=== PATIENT | female | born 1985 | race Two or more races ===

== ENCOUNTER 2021-09-17 00:32 | Inpatient (IN) | payer OTHER ==
[~2021-09-17] VITALS: Ht 160 cm; Wt 85.7 kg
--- NOTE | 2021-09-17 00:40 | NUR ---
LEONIDESRA 86 C/O DESAT AT HOME IN THE 50s, COVID SINCE 09/07. PER EMS 80s SAT ON 15LPM WITH INCREASED WORK OF BREATHING. PT PLACED ON NRB 15LPM WITH IMPROVEMENT TO 97% AND IMPROVED WORK OF BREATHING. PT AWAKE AND ALERT CHANGED INTO A GOWN AND PLACED ON MONITOR.
--- NOTE | 2021-09-17 00:44 | NUR ---
shwtea 20g initiated, blood sent to lab
[2021-09-17] MEDS ORDERED: methylPREDNISolone SOD SUCC 125 MG/2ML VIAL ONE (00:45)
[2021-09-17] MEDS ORDERED: methylPREDNISolone SOD SUCC 125 MG/2ML VIAL IV ONE (01:00)
[2021-09-17] MEDS ORDERED: IV NS 0.9% 1,000 ML IV ONE (01:00)
[2021-09-17 01:34] LABS: BASOPHILS % (AUTO) 0.3 % (0.0-2.0); EOSINOPHILS % (AUTO) 0.1 % (0.0-6.0); HEMATOCRIT 38 % (33-45); HEMOGLOBIN 12.8 g/dL (11.5-14.8); LYMPHOCYTES % (AUTO) 11.9 % (20.0-44.0); MEAN CORPUSCULAR HGB CONC 34 g/dl (31.0-36.0); MEAN CORPUSCULAR VOLUME 91 fL (82-100); MONOCYTES % (AUTO) 3.6 % (2.0-12.0); NEUTROPHILS % (AUTO) 84.1 % (43.0-81.0); PLATELET COUNT (AUTO) 453 K/uL (150-450); RED BLOOD CELL COUNT(AUTO) 4.21 MIL/uL (4.0-5.2); WHITE BLOOD COUNT (AUTO) 5.4 K/uL (4.3-11.0)
[2021-09-17 01:35] LABS: LYMPHOCYTES # (AUTO) 0.6 K/uL (0.8-4.8); MONOCYTES # (AUTO) 0.2 K/uL (0.1-1.30); NEUTROPHILS # (AUTO) 4.6 K/uL (1.8-8.9)
[2021-09-17 01:48] LABS: CALCIUM, SERUM 8.1 mg/dL (8.5-10.1); CARBON DIOXIDE 21 mmol/L (21-32); CHLORIDE 103 mmol/L (98-107); CREATININE 0.7 mg/dL (0.6-1.3); GLUCOSE 95 mg/dL (74-106); POTASSIUM 3.2 mmol/L (3.5-5.1); SODIUM SERUM 138 mmol/L (136-145); UREA NITROGEN, BLOOD 8 mg/dL (7-18)
[2021-09-17 01:51] LABS: CREATINE KINASE, TOTAL 54 U/L (26-192)
[2021-09-17 01:59] LABS: D-DIMER 4.11 mg/L(FEU (0.17-0.50)
[2021-09-17 02:02] LABS: ALANINE AMINOTRANSFERASE 35 U/L (12-78); ALBUMIN 2.4 g/dL (3.4-5.0); ALKALINE PHOSPHATASE 146 U/L (46-116); ASPARTATE AMINOTRANSFERASE 65 U/L (15-37); BILIRUBIN,TOTAL 0.3 mg/dL (0.2-1.0); TOTAL PROTEIN, SERUM 6.9 g/dL (6.4-8.2)
[2021-09-17 02:08] LABS: ABG BASE EXCESS -4.3 mmol/L; ABG OXYGEN SATURATION 96.2 % (92.0-98.5); ABG PCO2 28.9 mmHg (35.0-45.0); ABG PH 7.431 (7.350-7.450); ABG PO2 89.3 mmHg (75.0-100.0); AaDO2 594.8 mmHg; COHb 0.3 % (0.5-1.5); MetHb 0.2 % (0.0-1.5); O2Hb 95.7 % (94.0-97.0); SITE, ABG Right Radial; VENT MODE, BG 15 LNRB
[2021-09-17 02:12] LABS: C-REACTIVE PROTEIN 22.4 mg/dL (0.0-0.9)
--- NOTE | 2021-09-17 04:46 | NUR ---
SPOKE WITH MARJAN, DEBT AND BUDGET COUNSELOR FOR CLINICAL INFORMATION. PT IS AUITHORIZED TO STAY. VERBAL AUTH GIVEN.
--- NOTE | 2021-09-17 05:18 | NUR ---
EPIC PANEL PAGED
[2021-09-17] MEDS ORDERED: ENOXAPARIN SODIUM 100 MG/ML DISP.SYRIN SQ ONE ×2 (06:00→06:42)
[2021-09-17] MEDS ORDERED: OXYC1TAB8 PO (06:57)
[2021-09-17] MEDS ORDERED: POTASSIUM CHLORIDE 20 MEQ TAB.PRT.SR PO ONE ×2 (07:30→09:42)
[2021-09-17] MEDS ORDERED: TEMAZEPAM 15 MG CAPSULE PO PRN (07:30)
[2021-09-17 07:59] LABS: LYMPHOCYTES % (MANUAL) 15 % (16-48); MONOCYTES % (MANUAL) 5 % (0-11.0); NEUTROPHILS % (MANUAL) 80 (42-76)
--- NOTE | 2021-09-17 08:25 | NUR ---
MS BED 113
[2021-09-17] MEDS: DEXAMETHASONE SOD PHOSPHATE 4 MG/ML VIAL IV SCH (09:30)
[2021-09-17] MEDS ORDERED: DEXAMETHASONE SOD PHOSPHATE 4 MG/ML VIAL ONE (09:42)
--- NOTE | 2021-09-17 10:15 | NUR ---
REPORT GIVEN TO GILBERTO KIMBALL FOR LAURA.
--- NOTE | 2021-09-17 10:23 | NUR ---
JUAN ANTONIO RENO.
--- NOTE | 2021-09-17 12:00 | NUR ---
TRAIN CONDUCTOR ADMITTING NOTES ADMITTED THIS 36 Y/O FEMALE PT TO UNIT VIA [facility] @1140 ACCOMPANIED BY ER STAFF. PATIENT IS ALERT AND ORIENTED X4, ABLE TO MAKE NEEDS KNOWN. ON HIGH FLOW OXYGEN AT 15LPM VIA NON-REBREATHER MASK. PT'S SATURATION @90%. C/O SOB WITH LABORED BREATHING. PT PLACED ON LITHOGRAPHIC PHOTOGRAPHER APPRENTICE WITH CURRENT READING OF NSR, HR @ 100. DENIES ANY CHEST PAIN. ABDOMEN SOFT AND NON-TENDER, WITH DIMINISHED LUNG SOUNDS BILATERALLY. IV ACCESS ON RAC #18G INTACT AND PATENT, SL. ISOLATION PRECAUTION OBSERVED. SAFETY MEASURE INITIATED. BED LOCKED AND IN LOWEST POSITION, SR UP X2, CALL LIGHT AND TABLE PLACED WITHIN EASY REACH. WILL CONTINUE TO MONITOR.
--- NOTE | 2021-09-17 13:01 | NUR ---
RN NOTES PT NOTED WITH SPO2 OF 86% ON 15 LPM O2 VIA NON REBREATHER MASK. CHARGE NURSE NOTIFIED MD AND CALLED RT. RT CAME, PT WAS PUT ON HIGH FLOW O2 AT 40, NOW SATTING @ 96%. WILL CONTINUE TO MONITOR PATIENT.
[2021-09-17] MEDS ORDERED: REMDESIVIR (CHARGED) 200 MG, *LOADING DOSE 1 EA in IV NS 0.9% 210 ML IV ONE (15:00)
[2021-09-17] MEDS: APIXABAN 5 MG TABLET PO SCH (16:27)
--- NOTE | 2021-09-17 18:42 | NUR ---
ORDER DISPATCHER CHIEF CLOSING NOTES PT RESTING IN BED, A/O X4. REMAINS ON HIGH FLOW O2, FLOW RATE OF 40 VIA N/C, SATURATING AT 95%. NOTED WITH NON PRODUCTIVE COUGH. STILL WITH C/O SOB. REMDESIVIR GIVEN ORDERED, NO A/R NOTED. IV ACCESS ON RAC #18G INTACT AND PATENT, SL. ON MOP WORKER WITH CURRENT READING OF NSR, HR @98. ISOLATION PRECAUTIONS OBSERVED. SAFETY PRECAUTIONS IN PLACE. BED LOCKED AND IN LOWEST POSITION, SR UP X2, CALL LIGHT AND TABLE WITHIN EASY REACH. WILL ENDORSE TO NEXT SHIFT FOR CONTINUITY OF CARE.
--- NOTE | 2021-09-17 19:00 | NUR ---
telephone exchange operator notes Received pts in bed on hi flow 40% fio2 100% , noted desating to 80% pts gasping for air non rebreather mask 15 liters applied stat blood gas ordered , rn day shift nurse informed dr gomes . rt at bedside abg done , awaiting for result. place pts on right side position sating 94%
[2021-09-17 19:58] LABS: ABG BASE EXCESS -4.7 mmol/L; ABG OXYGEN SATURATION 89.9 % (92.0-98.5); ABG PCO2 23.1 mmHg (35.0-45.0); ABG PH 7.484 (7.350-7.450); ABG PO2 58.9 mmHg (75.0-100.0); COHb 0.3 % (0.5-1.5); MetHb 0.1 % (0.0-1.5); O2Hb 89.5 % (94.0-97.0); SITE, ABG Left Brachial; VENT MODE, BG HFNC 40L 100% +NRB 15L
[2021-09-17 20:00] VITALS: BP 123/66
--- NOTE | 2021-09-17 20:00 | NUR ---
telecommunications cable jointer notes Received pts in bed awake a/o x 4 able to make needs known , pts on hi flow 40% fio2 100% , 15 liters non rebreather mask,tele monitor ST- 103 bpm still with slight sob at this time . pts on right side position sating 94%v/s stable afebrile .all needs attended too call light within reach , kept pts comfortable.will continue to monitor.
--- NOTE | 2021-09-17 20:30 | NUR ---
television specialist notes Received a call from dr eliseo rodríguez result relayed with order to tranfer pts in icu for further monitoring .
--- NOTE | 2021-09-17 22:55 | NUR ---
television actor notes Pts transfer to icu room 254 via acls monitor , on 15 liters non rebreather mask ,and hi flow 40% fio2 100% sating 96% full report given to jim for continuity of care , pts is a/o x4 v/s stable afebrile at this time .
[2021-09-17 23:00] VITALS: BP 120/65
[2021-09-17 23:59] VITALS: BP 118/62
[2021-09-18] VITALS (22 sets, daily range): BP systolic 110–137; BP diastolic 33–89
--- NOTE | 2021-09-18 00:05 | NUR ---
manager nicu. transfer the pt from marita for abnormal abg result.pt is oxygen high flow and non rebreather, sat 93%, will continue to monitor vitals.
--- NOTE | 2021-09-18 04:47 | NUR ---
rn picu. am care. oral care, bed bath given. remaining same oxygen tolerated well. sat 95%. rn cardiac showing nsr. iv rt hand 20g. saline lock. hob elevated, pt on oxygen high flow and top nonrebreather. hob elevated. will continue to monitor vitals.
[2021-09-18 06:45] LABS: BASOPHILS % (AUTO) 0.1 % (0.0-2.0); HEMATOCRIT 34 % (33-45); HEMOGLOBIN 11.5 g/dL (11.5-14.8); LYMPHOCYTES # (AUTO) 0.8 K/uL (0.8-4.8); LYMPHOCYTES % (AUTO) 10.2 % (20.0-44.0); MEAN CORPUSCULAR HGB CONC 34 g/dl (31.0-36.0); MEAN CORPUSCULAR VOLUME 89 fL (82-100); MONOCYTES # (AUTO) 0.4 K/uL (0.1-1.30); MONOCYTES % (AUTO) 5.6 % (2.0-12.0); NEUTROPHILS # (AUTO) 6.6 K/uL (1.8-8.9); NEUTROPHILS % (AUTO) 84.1 % (43.0-81.0); PLATELET COUNT (AUTO) 536 K/uL (150-450); RED BLOOD CELL COUNT(AUTO) 3.83 MIL/uL (4.0-5.2); WHITE BLOOD COUNT (AUTO) 7.8 K/uL (4.3-11.0)
--- NOTE | 2021-09-18 07:42 | NUR ---
REFINERY OPERATOR POLYMERIZATION PLANT PATIENT RECEIVED IN BED, SLEEPING. PATIENT ON HFNC AT 40L 100% FIO2 AND NRB AT 15L, SATURATING AT 98%. RIGHT AC 18G IN PLACE, PATENT WITH NO SIGNS OF INFILTRATION. NO SIGNS OF DISTRESS NOTED AT THIS TIME. BED LOCKED AND IN LOWEST POSITION, CALL LIGHT WITHIN REACH, 2 SIDE RAILS UP. WILL CONTINUE TO MONITOR.
[2021-09-18 07:57] LABS: CALCIUM, SERUM 8.7 mg/dL (8.5-10.1); CREATININE 0.5 mg/dL (0.6-1.3); POTASSIUM 3.8 mmol/L (3.5-5.1)
[2021-09-18 07:59] LABS: ALBUMIN 2.2 g/dL (3.4-5.0); BILIRUBIN,DIRECT 0.1 mg/dL (0.0-0.2); BILIRUBIN,TOTAL 0.3 mg/dL (0.2-1.0); TOTAL PROTEIN, SERUM 6.4 g/dL (6.4-8.2)
[2021-09-18] MEDS: DEXAMETHASONE SOD PHOSPHATE 4 MG/ML VIAL IV SCH (08:38)
[2021-09-18] MEDS: APIXABAN 5 MG TABLET PO SCH ×2 (08:43→16:05)
[2021-09-18] MEDS ORDERED: TOCILIZUMAB 400 MG in IV NS 0.9% 80 ML IV ONE (11:30)
[2021-09-18] MEDS: ALBUTEROL SULFATE 8 GM HFA.AER.AD IH PRN ×2 (12:14→17:17)
[2021-09-18] MEDS ORDERED: TOCILIZUMAB 800 MG in IV NS 0.9% 60 ML IV ONE (12:30)
[2021-09-18] MEDS: REMDESIVIR (CHARGED) 100 MG in IV NS 0.9% 100 ML IV SCH (15:00)
--- NOTE | 2021-09-18 19:30 | NUR ---
RN NOTE PT RECEIVED IN BED. PT IS ON HIGH FLOW O2 AT 40L, FIO2 AT 100%, AND NRB MASK AT 15L. PT TOLERATING CURRENT SETTINGS WELL. PT IS ALERT AND ORIENTED X4. ON TRACTOR TRAILER TRUCK DRIVER SHOWING NSR. SKIN INTACT. IV ACCESS NOTED ON RIGHT AC #18. LINE FLUSHED, PATENT, AND INTACT WITH NO SIGNS OF INFILTRATION. ALL SAFETY MEASURES IMPLEMENTED. CALL LIGHT WITHIN REACH. BED ALARM ON. BED LOCKED AND IN LOWEST POSITION. WILL CONTINUE TO MONITOR AND ASSESS FOR ANY CHANGES DURING SHIFT.
[2021-09-19] VITALS (26 sets, daily range): BP systolic 97–140; BP diastolic 45–85
[2021-09-19 05:09] LABS: BASOPHILS % (AUTO) 0.1 % (0.0-2.0); HEMATOCRIT 34 % (33-45); HEMOGLOBIN 11.3 g/dL (11.5-14.8); LYMPHOCYTES # (AUTO) 0.8 K/uL (0.8-4.8); LYMPHOCYTES % (AUTO) 11.7 % (20.0-44.0); MEAN CORPUSCULAR HGB CONC 34 g/dl (31.0-36.0); MEAN CORPUSCULAR VOLUME 90 fL (82-100); MONOCYTES # (AUTO) 0.6 K/uL (0.1-1.30); MONOCYTES % (AUTO) 8.5 % (2.0-12.0); NEUTROPHILS # (AUTO) 5.4 K/uL (1.8-8.9); NEUTROPHILS % (AUTO) 79.7 % (43.0-81.0); PLATELET COUNT (AUTO) 453 K/uL (150-450); RED BLOOD CELL COUNT(AUTO) 3.76 MIL/uL (4.0-5.2); WHITE BLOOD COUNT (AUTO) 6.8 K/uL (4.3-11.0)
[2021-09-19 05:40] LABS: ALBUMIN 2.2 g/dL (3.4-5.0); BILIRUBIN,DIRECT 0.1 mg/dL (0.0-0.2); BILIRUBIN,TOTAL 0.2 mg/dL (0.2-1.0); CREATININE 0.6 mg/dL (0.6-1.3); POTASSIUM 3.5 mmol/L (3.5-5.1)
--- NOTE | 2021-09-19 06:39 | NUR ---
RN NOTE NO CHANGES IN PT CONDITION DURING SHIFT. PT IS ON HIGH FLOW O2 AT 40L, FIO2 AT 100%, AND NRB MASK AT 15L. PT TOLERATING CURRENT SETTINGS WELL WITH CURRENT OXYGEN SATURATION AT 97%. PT IS ALERT AND ORIENTED X4. ON LION TRAINER SHOWING NSR-SB. IV ACCESS NOTED ON RIGHT AC #18. LINE FLUSHED, PATENT, AND INTACT WITH NO SIGNS OF INFILTRATION. ALL DUE MEDS GIVEN ORDERED. PT KEPT CLEAN AND COMFORTABLE. ALL SAFETY MEASURES IMPLEMENTED. CALL LIGHT WITHIN REACH. BED ALARM ON. BED LOCKED AND IN LOWEST POSITION. WILL ENDORSE TO MORNING SHIFT RN FOR LAURA.
--- NOTE | 2021-09-19 07:23 | NUR ---
BUS REPAIR SUPERVISOR NOTE PATIENT RECEIVED IN BED, SLEEPING. PATIENT ON HIGH FLOW NC 40L 100% FIO2 AND NRB 15L AT THIS TIME SATURATING 96%. RIGHT AC 18G IV IN PLACE, PATENT WITH NO SIGNS OF INFILTRATION. NO SIGNS OF DISTRESS NOTED AT THIS TIME. BED LOCKED AND IN LOWEST POSITION, CALL LIGHT WITHIN REACH, 2 SIDE RAILS UP. WILL CONTINUE TO MONITOR.
[2021-09-19] MEDS: DEXAMETHASONE SOD PHOSPHATE 4 MG/ML VIAL IV SCH (08:08)
[2021-09-19] MEDS: APIXABAN 5 MG TABLET PO SCH ×2 (08:09→17:00)
[2021-09-19] MEDS: ONDANSETRON HCL/PF 4 MG/2 ML VIAL IVP PRN (08:14)
[2021-09-19 10:34] LABS: BAND % (MANUAL) 4 % (0.0-5.0); LYMPHOCYTES % (MANUAL) 11 % (16-48); METAMYELOCYTES % 1 % (0-0); MONOCYTES % (MANUAL) 4 % (0-11.0); MYELOCYTES % 1 % (0-0); NEUTROPHILS % (MANUAL) 79 (42-76)
[2021-09-19] MEDS: REMDESIVIR (CHARGED) 100 MG in IV NS 0.9% 100 ML IV SCH (15:47)
--- NOTE | 2021-09-19 19:08 | NUR ---
PUBLIC RELATIONS ANALYST PATIENT REMAINS IN BED, AWAKE, A&OX4. PATIENT ON HIGH FLOW NC 40L 100% FIO2 AND NRB 15L AT THIS TIME SATURATING 96%. RIGHT AC 18G IV IN PLACE, PATENT WITH NO SIGNS OF INFILTRATION. NO SIGNS OF DISTRESS NOTED AT THIS TIME. BED LOCKED AND IN LOWEST POSITION, CALL LIGHT WITHIN REACH, 2 SIDE RAILS UP. ALL NEED ATTENDED DURING SHIFT. WILL ENDORSE TO CHANGE BOOTH ATTENDANT NURSE.
--- NOTE | 2021-09-19 19:30 | NUR ---
RN NOTE PT RECEIVED IN BED. PT IS ON HIGH FLOW O2 AT 40L, FIO2 AT 100%, AND NRB MASK AT 15L. PT TOLERATING CURRENT SETTINGS WELL. PT IS ALERT AND ORIENTED X4. ON PUBLIC RELATIONS SENIOR ASSOCIATE SHOWING NSR. IV ACCESS NOTED ON RIGHT AC #18. LINE FLUSHED, PATENT, AND INTACT WITH NO SIGNS OF INFILTRATION. ALL SAFETY MEASURES IMPLEMENTED. CALL LIGHT WITHIN REACH. BED ALARM ON. BED LOCKED AND IN LOWEST POSITION. WILL CONTINUE TO MONITOR AND ASSESS FOR ANY CHANGES DURING SHIFT.
--- NOTE | 2021-09-19 20:30 | NUR ---
RN NOTE PT HIGH FLOW SETTINGS NOW AT 30L, 100% FIO2. PT TOLERATING WELL WITH OXYGEN SATURATION >95%. WILL CONTINUE TO MONITOR AND ASSESS FOR ANY CHANGES.
[2021-09-20] VITALS (24 sets, daily range): BP systolic 95–131; BP diastolic 41–87
[2021-09-20] MEDS: ONDANSETRON HCL/PF 4 MG/2 ML VIAL IVP PRN (02:32)
[2021-09-20 05:02] LABS: ALBUMIN 2.3 g/dL (3.4-5.0); BILIRUBIN,DIRECT 0.1 mg/dL (0.0-0.2); BILIRUBIN,TOTAL 0.2 mg/dL (0.2-1.0); CALCIUM, SERUM 7.7 mg/dL (8.5-10.1); CREATININE 0.6 mg/dL (0.6-1.3); POTASSIUM 3.3 mmol/L (3.5-5.1); TOTAL PROTEIN, SERUM 5.7 g/dL (6.4-8.2)
--- NOTE | 2021-09-20 06:36 | NUR ---
RN NOTE NO CHANGES IN PT CONDITION DURING SHIFT. PT IS NOW ON HIGH FLOW O2 AT 30L, FIO2 AT 100%, AND NRB MASK AT 15L. PT TOLERATING CURRENT SETTINGS WELL WITH CURRENT OXYGEN SATURATION >95%. PT IS ALERT AND ORIENTED X4. ON PRODUCTION DEPARTMENT SUPERVISOR SHOWING NSR-SB. IV ACCESS NOTED ON RIGHT AC #18. LINE FLUSHED, PATENT, AND INTACT WITH NO SIGNS OF INFILTRATION. ALL DUE MEDS GIVEN ORDERED. PT KEPT CLEAN AND COMFORTABLE. ALL SAFETY MEASURES IMPLEMENTED. CALL LIGHT WITHIN REACH. BED ALARM ON. BED LOCKED AND IN LOWEST POSITION. WILL ENDORSE TO MORNING SHIFT RN FOR LAURA.
--- NOTE | 2021-09-20 07:29 | NUR ---
RN OPENING NOTE RECEIVE REPORT FROM ATG JAVA DEVELOPER NURSE. PATIENT IN STABLE CONDITION AT TIME OF REPORT. ON HIGH FLOW O2 AT 30L/MIN AND NRB MASK 100% AT 15L/MIN. O2 SAT 97%. VITAL SIGNS WNL. PATIENT USE BED SIDE COMMODE. WILL FOLLOW UP AM LABS AND DOCTORS ORDERS. PROPER ISOLATION PRECAUTION IN PLACE. ALL SAFETY MEASURE IN PLACE. BED ON LOWEST POSITION WITH HOB ELEVATED WITH 2 SIDE RAIL UP. CALL LIGHT WITHIN REACH. WILL CONTINUE TO MONITOR.
--- NOTE | 2021-09-20 07:49 | NUR ---
RN NOTE RESPIRATORY THERAPIST TITRATE HIGH FLOW TO 35L/MIN WITH 95% O2. NRB WAS REMOVED. O2 SAT OF 95%. WILL CONTINUE TO MONITOR.
[2021-09-20] MEDS: APIXABAN 5 MG TABLET PO SCH ×2 (08:36→16:46)
[2021-09-20] MEDS: DEXAMETHASONE SOD PHOSPHATE 4 MG/ML VIAL IV SCH (08:36)
[2021-09-20] MEDS ORDERED: POTASSIUM CHLORIDE 20 MEQ TAB.PRT.SR PO SCH (10:00)
[2021-09-20] MEDS: REMDESIVIR (CHARGED) 100 MG in IV NS 0.9% 100 ML IV SCH (14:03)
--- NOTE | 2021-09-20 18:19 | NUR ---
RN CLOSING NOTE PATIENT REMAIN IN STABLE CONDITION WITH NO SIGN OF DISTRESS THROUGHOUT SHIFT. NRB WAS DISCONTINUE. HIGH FLOW NASAL CANULA WAS TITRATE DOWN FROM 40L/MIN TO 35L/MIN WITH FIO2 OF 95%. PATIENT MAINTAIN O2 SAT 95% AND ABOVE DURING REST. PATIENT CONTINUE TO AMBULATE TO BED SIDE COMMODE WITH OWN STRENGTH WHILE MAINTAINING VITAL SIGNS WNL. AM LABS RESULT SHOWS POTASSIUM OF 3.3. POTASSIUM TAB 20MEQ WAS GIVEN PER DOCTOR ORDER. ONE DOSE OF REMDESIVIR WAS GIVEN DURING SHIFT. ALL MEDICATION DUE DURING SHIFT WAS GIVEN. OK TO TRANSFER ORDER PER DR. PRESSLEY. AWAITING ROOM AVAILABILITY. PROPER ISOLATION PRECAUTION IN PLACE. ALL SAFETY MEASURE IN PLACE. BED ON LOWEST POSITION WITH HOB ELEVATED WITH 2 SIDE RAIL UP. CALL LIGHT WITHIN REACH. WILL CONTINUE TO MONITOR AND GIVE REPORT TO ASSISTANT CHIEF ENGINEER NURSE.
--- NOTE | 2021-09-20 19:30 | NUR ---
TRUCK MECHANIC APPRENTICE RCD PT W/DX COVID 19 PNA; PT IS A/O x4. NSR ON MONITOR. HI FLOW 40 L 95% O2. RAC 18 G INTACT. HL. SKIN INTACT.
--- NOTE | 2021-09-20 23:00 | NUR ---
HEEL COMPRESSOR PT NOTED CRYING A FEW TIMES; VERBALIZING FEELING OVERWHELMED SHE HAS NOT BEEN ABLE TO HOLD HER BABY.
[2021-09-21] VITALS (18 sets, daily range): BP systolic 93–135; BP diastolic 25–89
[2021-09-21] MEDS: ONDANSETRON HCL/PF 4 MG/2 ML VIAL IVP PRN ×2 (02:10→22:53)
--- NOTE | 2021-09-21 02:15 | NUR ---
PROGRAM MANAGEMENT ANALYST PT REQUESTED MEDICATION FOR NAUSEA; PRN ZOFRAN ADMINISTERED.
[2021-09-21 04:45] LABS: BASOPHILS % (AUTO) 0.3 % (0.0-2.0); HEMATOCRIT 37 % (33-45); HEMOGLOBIN 12.1 g/dL (11.5-14.8); LYMPHOCYTES # (AUTO) 0.9 K/uL (0.8-4.8); LYMPHOCYTES % (AUTO) 11.9 % (20.0-44.0); MEAN CORPUSCULAR HGB CONC 33 g/dl (31.0-36.0); MEAN CORPUSCULAR VOLUME 90 fL (82-100); MONOCYTES # (AUTO) 0.4 K/uL (0.1-1.30); MONOCYTES % (AUTO) 4.5 % (2.0-12.0); NEUTROPHILS # (AUTO) 6.4 K/uL (1.8-8.9); NEUTROPHILS % (AUTO) 82.3 % (43.0-81.0); PLATELET COUNT (AUTO) 261 K/uL (150-450); WHITE BLOOD COUNT (AUTO) 7.8 K/uL (4.3-11.0)
[2021-09-21 05:13] LABS: ALBUMIN 2.4 g/dL (3.4-5.0); BILIRUBIN,DIRECT 0.1 mg/dL (0.0-0.2); BILIRUBIN,TOTAL 0.3 mg/dL (0.2-1.0); CALCIUM, SERUM 7.8 mg/dL (8.5-10.1); CREATININE 0.7 mg/dL (0.6-1.3); POTASSIUM 3.3 mmol/L (3.5-5.1); TOTAL PROTEIN, SERUM 5.6 g/dL (6.4-8.2)
--- NOTE | 2021-09-21 05:54 | NUR ---
RT NOTE DECREASED LITER FLOW TO 30 LPM. PT COMPLAINS FLOW TOO STRONG. RN KALIN NOTIFIED. PT TOLERATING WELL.
--- NOTE | 2021-09-21 06:39 | NUR ---
DIRECTOR OF NATIONAL SALES HI FLOW ADJUSTED TO 30 L; PT W/INTERMITTENT EPISODES OF DESATURATION WHEN SHE USES THE BSC.
--- NOTE | 2021-09-21 07:10 | NUR ---
ICU OPENING NOTE RECEIVED PT IN BED, AWAKE. A/O X4. ON HIGH FLOW O2 @30L/MIN. O2 SAT 97%. NOT IN DISTRESS. R AC #18 INTACT, PATENT AND FLUSHED. USES BED SIDE COMMODE WITH STANDBY ASSIST. PROPER ISOLATION PRECAUTION IN PLACE. SAFETY MEASURE IN PLACE. CALL LIGHT WITHIN REACH. BED LOCKED AND IN LOWEST POSITION WITH HOB ELEVATED AND SIDE RAILS UP X2. WILL CONTINUE TO MONITOR.
--- NOTE | 2021-09-21 08:01 | NUR ---
RT NOTE DECREASE FIO2 TO 80% PER MD ORDER. GILBERTO FRANKEL NOTIFIED AND AWARE. MONITORING PATIENT CLOSELY FOR ANY CHANGES.
[2021-09-21] MEDS: ACETAMINOPHEN 325 MG TABLET PO PRN ×3 (08:29→22:53)
[2021-09-21] MEDS: DEXAMETHASONE SOD PHOSPHATE 4 MG/ML VIAL IV SCH (08:30)
[2021-09-21] MEDS: APIXABAN 5 MG TABLET PO SCH ×2 (08:32→16:18)
[2021-09-21 09:55] LABS: BAND % (MANUAL) 2 % (0.0-5.0); LYMPHOCYTES % (MANUAL) 16 % (16-48); MONOCYTES % (MANUAL) 1 % (0-11.0); NEUTROPHILS % (MANUAL) 81 (42-76)
[2021-09-21] MEDS ORDERED: POTASSIUM CHLORIDE 20 MEQ TAB.PRT.SR PO SCH (10:00)
[2021-09-21] MEDS: REMDESIVIR (CHARGED) 100 MG in IV NS 0.9% 100 ML IV SCH (14:57)
--- NOTE | 2021-09-21 16:01 | NUR ---
RN NOTES TRANSFERRED PT TO [facility] ROOM 108 PER ACLS PROTOCOL. NOT IN DISTRESS. DENIES PAIN. REPORT GIVEN TO MARIA INES MACIAS FOR LAURA. VS STABLE.
--- NOTE | 2021-09-21 18:37 | NUR ---
RN CLOSING NOTES; PT A/OX4. TRANSFER FROM ICU. PT IS COVID +. PT ON HFNC @30L/MIN. TOLERATING WELL WITH 02 SAT AT 96-97%. 4/4 REMDESIVIR GIVEN. NO C/O PAIN OR DISTRESS AT THIS TIME. ALL MEDICATIONS GIVEN AND TOLERATED WELL. PT HAS A BEDSIDE COMMODE, SHE WILL CALL FOR ASSISTANCE WHEN SHE NEEDS TO USE IT. PT KEPT CLEAN, DRY, AND COMFORTABLE. SAFETY MEASURES RENDERED, BED IN LOWEST POS. LOCKED, SIDE RAILSX2, WITH CALL LIGHT WITHIN REACH. NO SIGNIFICANT CHANGES TO PT HEALTH STATUS ON SHIFT. WILL ENDORSE TO RECEIVING COORDINATOR RN. PT IN STABLE CONDITION.
--- NOTE | 2021-09-21 19:30 | NUR ---
RN OPENING NOTE RECEIVED PATIENT IN BED. A/OX4. ON HIGH FLOW NC 30L 80% FIO2. RESPIRATIONS ARE EVEN AND UNLABORED. PATIENT GETS SOB WHEN TALKING. USES 15L NRB ADDITIONAL O2 WHEN FEELING SOB. PATIENT IS HAVING A COUGH. NO C/O PAIN AT THIS TIME. TELE MONITOR READS SINUS RHYTHM HR 86. IN NO APPARENT DISTRESS. IV ACCESS IN RAC#20 PATENT AND SALINE LOCKED. BED IS LOW AND LOCKED, HOB ELEVATED IN SEMI FOWLERS, SIDE RAILS UP X2, ESTELLE LIGHT WITHIN REACH.
[2021-09-22] VITALS: BP 136/71
[2021-09-22 04:00] VITALS: BP 101/56
--- NOTE | 2021-09-22 06:18 | NUR ---
RN CLOSING NOTE PATIENT RESTING IN BED. A/OX4. REMAINS ON HIGH FLOW NC 30L 80% FIO2, USES 15L NRB WHEN FEELING SOB. RESPIRATIONS ARE EVEN AND UNLABORED. MANAGED PAIN AND NAUSEA WITH TYLENOL AND ZOFRAN. TELE MONITOR IS SINUS RHYTHM. NO DISTRESS. RAC#20 MAINTAINED . BED REMAINS LOW AND LOCKED, HOB ELEVATED IN SEMI FOWLERS, SIDE RAILS UP X2, ESTELLE LIGHT WITHIN REACH. WILL ENDORSE TO ONCOMING SHIFT.
[2021-09-22 06:39] LABS: BASOPHILS % (AUTO) 0.1 % (0.0-2.0); EOSINOPHILS % (AUTO) 2.7 % (0.0-6.0); HEMATOCRIT 37 % (33-45); HEMOGLOBIN 12.2 g/dL (11.5-14.8); LYMPHOCYTES % (AUTO) 11.6 % (20.0-44.0); MEAN CORPUSCULAR HGB CONC 33 g/dl (31.0-36.0); MEAN CORPUSCULAR VOLUME 90 fL (82-100); MONOCYTES # (AUTO) 0.5 K/uL (0.1-1.30); MONOCYTES % (AUTO) 5.3 % (2.0-12.0); NEUTROPHILS # (AUTO) 7.1 K/uL (1.8-8.9); NEUTROPHILS % (AUTO) 80.3 % (43.0-81.0); PLATELET COUNT (AUTO) 232 K/uL (150-450); RED BLOOD CELL COUNT(AUTO) 4.09 MIL/uL (4.0-5.2); WHITE BLOOD COUNT (AUTO) 8.8 K/uL (4.3-11.0)
[2021-09-22 06:44] LABS: CALCIUM, SERUM 8.2 mg/dL (8.5-10.1); CREATININE 0.6 mg/dL (0.6-1.3); POTASSIUM 3.7 mmol/L (3.5-5.1)
[2021-09-22 08:00] VITALS: BP 106/65
[2021-09-22] MEDS: DEXAMETHASONE SOD PHOSPHATE 4 MG/ML VIAL IV SCH (08:51)
[2021-09-22] MEDS: APIXABAN 5 MG TABLET PO SCH ×2 (08:52→16:37)
[2021-09-22] MEDS: ONDANSETRON HCL/PF 4 MG/2 ML VIAL IVP PRN (10:02)
[2021-09-22 12:00] VITALS: BP 100/63
[2021-09-22 16:00] VITALS: BP 104/60
[2021-09-22 17:56] LABS: BAND % (MANUAL) 1 % (0.0-5.0); EOSINOPHILS % (MANUAL) 3 % (0-4); LYMPHOCYTES % (MANUAL) 9 % (16-48); MONOCYTES % (MANUAL) 7 % (0-11.0); NEUTROPHILS % (MANUAL) 79 (42-76); REACTIVE LYMPHOCYTES 1 % (0-0)
--- NOTE | 2021-09-22 18:37 | NUR ---
RN CLOSING NOTE PATIENT IN BED. A/OX4. ON HIGH FLOW NC 30L 80% FIO2. RESPIRATIONS ARE EVEN AND UNLABORED. PATIENT GETS SOB WHEN TALKING AND AMBULATING. NO C/O PAIN AT THIS TIME. TELE MONITOR READS SINUS RHYTHM HR 86. IN NO APPARENT DISTRESS. IV ACCESS IN RAC#20 PATENT AND SALINE LOCKED. ALL SCHEDULED MEDICATIONS. BED IS LOW AND LOCKED, HOB ELEVATED IN SEMI FOWLERS, SIDE RAILS UP X2, ESTELLE LIGHT WITHIN REACH. WILL ENDORSE TO NIGHT NURSE FOR LAURA.
--- NOTE | 2021-09-22 19:30 | NUR ---
RN OPENING NOTE RECEIVED PATIENT IN BED. A/OX4. ON HIGH FLOW NC 30L 80% FIO2. RESPIRATIONS ARE EVEN AND UNLABORED. SOB WHEN TALKING. COUGHING STATES MUCUS IS YELLOW/ PINK TINGE. NO C/O PAIN AT THIS TIME. TELE MONITOR READS SINUS RHYTHM. IN NO APPARENT DISTRESS. IV ACCESS IN RAC#20 PATENT AND SALINE LOCKED, PATIETN STATES IT FEELS TENDER BUT DOESNT WANT ANOTHER IV AT THIS TIME. BED IS LOW AND LOCKED, HOB ELEVATED IN SEMI FOWLERS, SIDE RAILS UP X2, ESTELLE LIGHT WITHIN REACH.
[2021-09-22 20:00] VITALS: BP 121/66
[2021-09-23] VITALS: BP 113/68
[2021-09-23] MEDS: ACETAMINOPHEN 325 MG TABLET PO PRN (01:24)
[2021-09-23] MEDS: ONDANSETRON HCL/PF 4 MG/2 ML VIAL IVP PRN (01:24)
[2021-09-23 04:00] VITALS: BP 100/69
--- NOTE | 2021-09-23 06:11 | NUR ---
RN CLOSING NOTE IN BED. A/OX4. REMAINS ON HIGH FLOW NC 30L 80% FIO2. RESPIRATIONS ARE EVEN AND UNLABORED. PRN TYLENOL A ND ZOFRAN GIVEN. SINUS RHYTHM. RAC#20 INTACT. BED REMAINS LOW AND LOCKED, HOB ELEVATED IN SEMI FOWLERS, SIDE RAILS UP X2, ESTELLE LIGHT WITHIN REACH. WILL ENDORSE TO ONCOMING SHIFT
[2021-09-23 06:40] LABS: BASOPHILS % (AUTO) 0.1 % (0.0-2.0); EOSINOPHILS % (AUTO) 2.3 % (0.0-6.0); HEMATOCRIT 38 % (33-45); HEMOGLOBIN 12.4 g/dL (11.5-14.8); LYMPHOCYTES % (AUTO) 11.1 % (20.0-44.0); MEAN CORPUSCULAR HGB CONC 33 g/dl (31.0-36.0); MEAN CORPUSCULAR VOLUME 90 fL (82-100); MONOCYTES # (AUTO) 0.5 K/uL (0.1-1.30); MONOCYTES % (AUTO) 5.8 % (2.0-12.0); NEUTROPHILS # (AUTO) 7.2 K/uL (1.8-8.9); NEUTROPHILS % (AUTO) 80.7 % (43.0-81.0); PLATELET COUNT (AUTO) 202 K/uL (150-450); WHITE BLOOD COUNT (AUTO) 8.9 K/uL (4.3-11.0)
[2021-09-23 07:16] LABS: CALCIUM, SERUM 7.8 mg/dL (8.5-10.1); CREATININE 0.7 mg/dL (0.6-1.3); POTASSIUM 3.5 mmol/L (3.5-5.1)
[2021-09-23 08:00] VITALS: BP 98/55
[2021-09-23] MEDS: DEXAMETHASONE SOD PHOSPHATE 4 MG/ML VIAL IV SCH (08:37)
[2021-09-23] MEDS: APIXABAN 5 MG TABLET PO SCH ×2 (08:37→17:04)
--- NOTE | 2021-09-23 11:56 | NUR ---
WOUND CARE CONSULT: REVIEWED CHART AND NURSING DOCUMENTATION WHICH INDICATES INTACT SKIN. CONSULT READS ". "EVALUATE FOR C SECTION 09/07/21". DEFER TO PMD FOR POST . WILL SEE PRN.
[2021-09-23 12:00] VITALS: BP 100/62
[2021-09-23 12:21] LABS: EOSINOPHILS % (MANUAL) 2 % (0-4); LYMPHOCYTES % (MANUAL) 12 % (16-48); MONOCYTES % (MANUAL) 5 % (0-11.0); NEUTROPHILS % (MANUAL) 81 (42-76)
[2021-09-23 16:00] VITALS: BP 109/59
--- NOTE | 2021-09-23 19:15 | NUR ---
RN OPENING NOTE RECEIVED CARE OF PATIENT WHILE PATIENT IN BED. A/OX, ABLE TO VERBALIZE NEEDS. ON HIGH FLOW NC 30L 80% FIO2. SOB NOTED WHEN SPEAKING, PRODUCTIVE COUGH NOTED, MUCOUS PRODUCTION IN MODERATE AMOUNT AND IS YELLOW IN COLOR. NO SIGNIFICANT FINDINGS UPON INITIAL NURSING ASSESSMENTS. PATIENT ON TELE MONITOR, SINUS RHYTHM AT THIS TIME WITH HR OF 75. IV ACCESS IN LFA G#20 PATENT AND SALINE LOCKED. ALL SAFETY MEASURES IMPLEMENTED. BED IS AT LOWEST POSITION AND LOCKED, HOB ELEVATED IN SEMI FOWLERS, SIDE RAILS UP X2, CALL LIGHT WITHIN REACH. WILL CONTINUE TO MONITOR PATIENT FOR ANY CHANGES.
[2021-09-23 20:00] VITALS: BP 104/60
[2021-09-23 21:05] LABS: C-REACTIVE PROTEIN < 0.0 mg/dL (0.0-0.9)
[2021-09-23] MEDS: PANTOPRAZOLE 40 MG VIAL IV SCH (22:19)
[2021-09-23] MEDS: CALCIUM CARBONATE 500 MG TAB.CHEW PO PRN (22:47)
[2021-09-24] VITALS: BP 116/73
[2021-09-24 04:00] VITALS: BP 110/75
--- NOTE | 2021-09-24 07:05 | NUR ---
RN NOTE REPORT REC'D FR RN NOC. PT IS AWAKE, ALERT,OX4. ON HIGH FLOW NC AT 80% SAT95%. NO SOB. SR ON MONITOR. IV TO LFA PATENT AND INTACT. SAFETY AND ISOLATION PRECAUTIONS OBSERVED. CALL LIGHT WITHIN REACH. WILL CONTINUE TO MONITOR.
--- NOTE | 2021-09-24 07:23 | NUR ---
RN CLOSING NOTES ENDORSED CARE OF PATIENT WHILE PATIENT IN BED. A/O 4X, ABLE TO VERBALIZE NEEDS. ON HIGH FLOW NC 30L 80% FIO2. PATIENT REMAINS HAVING SOB WHEN SPEAKING OR PERFORMING ACTIONS, PRODUCTIVE COUGH NOTED, MUCOUS PRODUCTION IN MODERATE AMOUNT AND IS YELLOW IN COLOR. NO SIGNIFICANT FINDINGS UPON ALL NURSING ASSESSMENTS. PATIENT ON TELE MONITOR, SINUS RHYTHM AT THIS TIME WITH HR OF 80. IV ACCESS IN LFA G#20 PATENT AND SALINE LOCKED. ALL NEEDS ATTENDED TO THROUGHOUT SHIFT, ALL DUE MEDS GIVEN. ALL SAFETY MEASURES IMPLEMENTED. BED IS AT LOWEST POSITION AND LOCKED, HOB ELEVATED IN SEMI FOWLERS, SIDE RAILS UP X2, CALL LIGHT WITHIN REACH. ENDORSED TO DAY SHIFT NURSE FOR LAURA.
[2021-09-24 08:00] VITALS: BP 96/58
[2021-09-24] MEDS: APIXABAN 5 MG TABLET PO SCH ×2 (08:16→17:52)
[2021-09-24] MEDS: DEXAMETHASONE SOD PHOSPHATE 10 MG/ML VIAL IV SCH (08:16)
[2021-09-24 09:01] LABS: CALCIUM, SERUM 8.4 mg/dL (8.5-10.1); CREATININE 0.6 mg/dL (0.6-1.3); PHOSPHORUS 4.3 mg/dL (2.5-4.9); POTASSIUM 3.5 mmol/L (3.5-5.1)
[2021-09-24 09:05] LABS: BASOPHILS % (AUTO) 0.1 % (0.0-2.0); EOSINOPHILS % (AUTO) 1.1 % (0.0-6.0); HEMATOCRIT 38 % (33-45); HEMOGLOBIN 12.3 g/dL (11.5-14.8); LYMPHOCYTES # (AUTO) 0.6 K/uL (0.8-4.8); LYMPHOCYTES % (AUTO) 9.6 % (20.0-44.0); MEAN CORPUSCULAR HGB CONC 33 g/dl (31.0-36.0); MEAN CORPUSCULAR VOLUME 90 fL (82-100); MONOCYTES # (AUTO) 0.3 K/uL (0.1-1.30); MONOCYTES % (AUTO) 4.4 % (2.0-12.0); NEUTROPHILS # (AUTO) 5.1 K/uL (1.8-8.9); NEUTROPHILS % (AUTO) 84.8 % (43.0-81.0); PLATELET COUNT (AUTO) 174 K/uL (150-450); RED BLOOD CELL COUNT(AUTO) 4.18 MIL/uL (4.0-5.2)
[2021-09-24] MEDS: ACETAMINOPHEN 325 MG TABLET PO PRN (09:24)
[2021-09-24 09:37] LABS: MAGNESIUM 2.2 mg/dL (1.8-2.4)
[2021-09-24 12:00] VITALS: BP 107/64
[2021-09-24 16:00] VITALS: BP 103/64
[2021-09-24 17:21] LABS: LYMPHOCYTES % (MANUAL) 7 % (16-48); MONOCYTES % (MANUAL) 2 % (0-11.0); NEUTROPHILS % (MANUAL) 91 (42-76)
--- NOTE | 2021-09-24 18:35 | NUR ---
RN NOTE PTS FIO2 IS DECREASED TO 60 % WITH O2 SAT 98 % PER RT ALVIN . PT STATES THAT SHE FEELS BETTER OXYGENATION CAMERON. NO C/O PAIN OR SOB. NEEDS ATTENDED. DUE MEDS GIVEN SCHEDULED. SAFETY AND RESPIRATORY ISOLATION PRECAUTIONS IN PLACE. CALL LIGHT WITHIN REACH. WILL ENDORSE TO NOC RN FOR LAURA.
--- NOTE | 2021-09-24 19:30 | NUR ---
RN OPENING NOTE RECEIVED CARE OF PATIENT WHILE PATIENT IN BED. A/O X4, ABLE TO VERBALIZE NEEDS. ON HIGH FLOW NC 30L 60% FIO2. SOB NOTED WHEN SPEAKING. PATIENT EXPRESSES PAIN, WILL ADMINISTER NORCO PRN AND REASSESS ACCORDINGLY. NO SIGNIFICANT FINDINGS UPON INITIAL NURSING ASSESSMENTS. PATIENT ON TELE MONITOR, SINUS RHYTHM AT THIS TIME WITH HR OF 87. IV ACCESS IN LFA G#20 PATENT AND SALINE LOCKED. ALL SAFETY MEASURES IMPLEMENTED. BED IS AT LOWEST POSITION AND LOCKED, HOB ELEVATED IN SEMI FOWLERS, SIDE RAILS UP X2, CALL LIGHT WITHIN REACH. WILL CONTINUE TO MONITOR PATIENT FOR ANY CHANGES.
[2021-09-24] MEDS: HYDROCODONE/APAP 5/325MG TABLET PO PRN ×2 (19:40→23:43)
[2021-09-24 20:00] VITALS: BP 107/66
[2021-09-24] MEDS: PANTOPRAZOLE 40 MG VIAL IV SCH (22:30)
[2021-09-25] VITALS: BP 97/57
[2021-09-25 04:00] VITALS: BP 114/71
--- NOTE | 2021-09-25 06:50 | NUR ---
RN CLOSING NOTES WILL ENDORSE CARE OF PATIENT WHILE PATIENT IN BED. A/O 4X, ABLE TO VERBALIZE NEEDS. ON HIGH FLOW NC 30L 60% FIO2. PATIENT REMAINS HAVING SOB WHEN SPEAKING OR PERFORMING ACTIONS, PRODUCTIVE COUGH NOTED, MUCOUS PRODUCTION IN MODERATE AMOUNT AND IS YELLOW IN COLOR. NO SIGNIFICANT FINDINGS UPON ALL NURSING ASSESSMENTS. PATIENT ON TELE MONITOR, SINUS TACH AT THIS TIME WITH HR OF 120. IV ACCESS IN LFA G#20 PATENT AND SALINE LOCKED. ALL NEEDS ATTENDED TO THROUGHOUT SHIFT, ALL DUE MEDS GIVEN. ALL SAFETY MEASURES IMPLEMENTED. BED IS AT LOWEST POSITION AND LOCKED, HOB ELEVATED IN SEMI FOWLERS, SIDE RAILS UP X2, CALL LIGHT WITHIN REACH. WILL ENDORSE TO DAY SHIFT NURSE FOR LAURA.
--- NOTE | 2021-09-25 07:26 | NUR ---
RN OPENING NOTES; PT IN BED IN SUPINE POS. A/OX4, PT AMBULATORY WITH ASSISTANCE. PT HAS NO C/O PAIN AT THIS TIME. NO SOB OR DISTRESS NOTED. PT ON HFM @30L SATING AT 96%. ALL SAFETY MEASURES RENDERED, BED LOCKED IN LOWEST POS. SIDERAILSX2 WITH CALL LIGHT WITHIN REACH. WILL CONTINUE TO MONITOR.
[2021-09-25 08:00] VITALS: BP 112/68
[2021-09-25 08:23] LABS: EOSINOPHILS % (AUTO) 0.2 % (0.0-6.0); HEMATOCRIT 38 % (33-45); HEMOGLOBIN 12.8 g/dL (11.5-14.8); LYMPHOCYTES # (AUTO) 0.3 K/uL (0.8-4.8); LYMPHOCYTES % (AUTO) 2.9 % (20.0-44.0); MEAN CORPUSCULAR HGB CONC 33 g/dl (31.0-36.0); MEAN CORPUSCULAR VOLUME 91 fL (82-100); MONOCYTES # (AUTO) 0.2 K/uL (0.1-1.30); MONOCYTES % (AUTO) 1.7 % (2.0-12.0); NEUTROPHILS # (AUTO) 9.2 K/uL (1.8-8.9); NEUTROPHILS % (AUTO) 95.2 % (43.0-81.0); RED BLOOD CELL COUNT(AUTO) 4.24 MIL/uL (4.0-5.2); WHITE BLOOD COUNT (AUTO) 9.7 K/uL (4.3-11.0)
[2021-09-25 08:26] LABS: CALCIUM, SERUM 7.8 mg/dL (8.5-10.1); CREATININE 0.7 mg/dL (0.6-1.3); POTASSIUM 3.2 mmol/L (3.5-5.1)
[2021-09-25] MEDS: PANTOPRAZOLE 40 MG TABLET.DR PO SCH (08:28)
[2021-09-25] MEDS: HYDROCODONE/APAP 5/325MG TABLET PO PRN (08:29)
[2021-09-25] MEDS: DEXAMETHASONE SOD PHOSPHATE 10 MG/ML VIAL IV SCH (08:29)
[2021-09-25] MEDS: APIXABAN 5 MG TABLET PO SCH ×2 (08:29→16:01)
[2021-09-25] MEDS: ACETAMINOPHEN 325 MG TABLET PO PRN ×3 (09:06→23:23)
--- NOTE | 2021-09-25 09:58 | NUR ---
PATIENT ANXIOUS ,KEEP REMOVING TELEMETRY,DR. PRESSLEY AWARE HE WILL TALK TO THE PATIENT.
[2021-09-25] MEDS: POTASSIUM CHLORIDE 20 MEQ TAB.PRT.SR PO SCH ×2 (10:17→11:07)
[2021-09-25 12:00] VITALS: BP 100/60
[2021-09-25] MEDS ORDERED: LORAZEPAM 1 MG TABLET PO PRN (13:00)
[2021-09-25 14:01] LABS: BAND % (MANUAL) 6 % (0.0-5.0); LYMPHOCYTES % (MANUAL) 2 % (16-48); MONOCYTES % (MANUAL) 2 % (0-11.0); NEUTROPHILS % (MANUAL) 90 (42-76)
[2021-09-25 14:04] LABS: PLATELET COUNT (AUTO) 88 K/uL (150-450)
[2021-09-25 14:05] LABS: C-REACTIVE PROTEIN < 0.2 mg/dL (0.0-0.9)
[2021-09-25 16:00] VITALS: BP 104/65
--- NOTE | 2021-09-25 18:32 | NUR ---
RN CLOSING NOTES; PT A/OX4, NO SOB OR DISTRESS AT THIS TIME. ALL MEDICATIONS GIVEN AND TOLERATED WELL. PRN TYLENOL GIVEN FOR 2/10 PAIN. PT STILL ON HFM @ 30LPM SATING AT 92%. ALL SAFETY MEASURES DONE, BED IN LOWEST POS. LOCKED, SIDE RAILSX1 WITH CALL LIGHT WITHIN REACH. WILL ENDORSE TO COAL GETTER RN. NO SIGNIFICANT CHANGES TO PT HEALTH STATUS DURING SHIFT.
--- NOTE | 2021-09-25 19:15 | NUR ---
RN OPENING NOTES; RECEIVED CARE OF PATIENT WHILE IN BED, ASLEEP BUT WAKES TO NAME. A/OX4, ABLE TO VERBALIZE NEEDS, PT AMBULATORY WITH ASSISTANCE. PT HAS NO COMPLAINS OF PAIN AT THIS TIME. NO SOB OR DISTRESS NOTED. PT ON HFM @30L SATING AT 94%, NO SOB NOTED, NO SIGNS OF DISTRESS NOTED. LFA IV ACCESS IS INTACT, PATENT, NO SIGNS OF INFILTRATION, FLUSHES WELL. ALL SAFETY MEASURES RENDERED, BED LOCKED IN LOWEST POS. SIDERAILSX2 WITH CALL LIGHT WITHIN REACH. WILL CONTINUE TO MONITOR.
[2021-09-25 20:00] VITALS: BP 97/57
[2021-09-26] VITALS: BP 103/67
[2021-09-26] MEDS: HYDROCODONE/APAP 5/325MG TABLET PO PRN ×4 (03:10→21:53)
[2021-09-26 04:00] VITALS: BP 94/57
[2021-09-26] MEDS: ACETAMINOPHEN 325 MG TABLET PO PRN (06:20)
--- NOTE | 2021-09-26 07:23 | NUR ---
RN CLOSING NOTES ENDORSED PATIENT TO AM NURSE, PT A/OX4, ABLE TO VERBALIZE NEEDS. NO SOB OR DISTRESS AT THIS TIME. ALL MEDICATIONS GIVEN AND TOLERATED WELL. PATIENT REMAINS ON HFM @ 30LPM SATING AT 94%. ALL SAFETY MEASURES DONE, BED IN LOWEST POS. LOCKED, SIDE RAILSX1 WITH CALL LIGHT WITHIN REACH. ALL ISOLATION PRECAUTIONS PUT IN PLACE. ENDORSED TO DAY SHIFT RN. NO SIGNIFICANT CHANGES TO PT HEALTH STATUS DURING SHIFT.
--- NOTE | 2021-09-26 07:26 | NUR ---
RN OPENING NOTES; PT IN BED IN SUPINE POS. A/OX4, PT AMBULATORY WITH ASSISTANCE. PT GIVEN TYLENOL PRN ON COMMISSIONED SALES ASSOCIATE FOR 2/10 HEADACHE. NO SOB OR DISTRESS NOTED. PT ON HFM @30L SATING AT 96%. ALL SAFETY MEASURES RENDERED, BED LOCKED IN LOWEST POS. SIDERAILSX2 WITH CALL LIGHT WITHIN REACH. WILL CONTINUE TO MONITOR.
[2021-09-26 07:56] LABS: CALCIUM, SERUM 7.4 mg/dL (8.5-10.1); CREATININE 0.7 mg/dL (0.6-1.3); POTASSIUM 3.5 mmol/L (3.5-5.1)
[2021-09-26 08:00] VITALS: BP 92/52
[2021-09-26] MEDS: APIXABAN 5 MG TABLET PO SCH ×2 (08:24→16:06)
[2021-09-26] MEDS: DEXAMETHASONE SOD PHOSPHATE 10 MG/ML VIAL IV SCH (08:24)
[2021-09-26] MEDS: PANTOPRAZOLE 40 MG TABLET.DR PO SCH (08:24)
[2021-09-26] MEDS: LORAZEPAM 1 MG TABLET PO PRN ×2 (14:55→21:53)
[2021-09-26 16:00] VITALS: BP 98/60
--- NOTE | 2021-09-26 18:58 | NUR ---
RN CLOSING NOTES; PT A/OX4, NO SOB OR DISTRESS AT THIS TIME. ALL MEDICATIONS GIVEN AND TOLERATED WELL. PT STILL ON HFM @ 30LPM SATING AT 92%. PT STATED NORCO NO LONGER WORKING FOR 8/10 GENERALIZED BODY PAIN. INFORMED MD, WAITING FOR FURTHER ORDERS. WILL LET HALL WORKER RN KNOW TO F/U. ALL SAFETY MEASURES DONE, BED IN LOWEST POS. LOCKED, SIDE RAILSX1 WITH CALL LIGHT WITHIN REACH. WILL ENDORSE TO HALL WORKER RN. NO SIGNIFICANT CHANGES TO PT HEALTH STATUS DURING SHIFT.
[2021-09-26] MEDS ORDERED: HYDROCODONE/APAP 5/325MG TABLET PO PRN (19:30)
--- NOTE | 2021-09-26 19:40 | NUR ---
RN NOTE PT RECEIVED IN BED. PT IS ON HIGH FLOW O2 AT 30L AND 60% FIO2. PT TOLERATING WELL. NO S/S OF RESP DISTRESS. PT IS ALERT AND ORIENTED X4. ON MANUFACTURING ENGINEERING TECHNICIAN SHOWING NSR-ST. ON REGULAR DIET. IV ACCESS NOTED ON LEFT FA #20. LINE FLUSHED, PATENT, AND INTACT WITH NO SIGNS OF INFILTRATION. ALL SAFETY MEASURES IMPLEMENTED. CALL LIGHT WITHIN REACH. BED ALARM ON. BED LOCKED AND IN LOWEST POSITION. SIDE RAILS UP. WILL CONTINUE TO MONITOR AND ASSESS FOR ANY CHANGES DURING SHIFT.
[2021-09-26 20:00] VITALS: BP 118/74
[2021-09-27] VITALS: BP 107/57
--- NOTE | 2021-09-27 01:49 | NUR ---
RN NOTE SPOKE WITH MAYRA RODRIGUES REGARDING PT STATING PRN NORCO [phone] IS NOT HELPING MUCH ANYMORE. MAYRA RODRIGUES STATED TO KEEP CURRENT ORDER. NO NEW ORDERS. ORDER NOTED AND CARRIED OUT.
[2021-09-27] MEDS ORDERED: LEVOFLOXACIN 500 MG /D5W 100ML 100 ML IV ONE (02:49)
--- NOTE | 2021-09-27 02:54 | NUR ---
RN NOTE REDUCER RAVI ON UNIT. INFORMED OF PATIENT CONDITION/HR. RAVI ORDERED DILAUDID 1MG PRN. ORDER NOTED.
[2021-09-27] MEDS: HYDROMORPHONE 1 MG/1 ML DISP.SYRIN IV PRN ×4 (02:57→23:43)
[2021-09-27] MEDS ORDERED: LEVOFLOXACIN 500 MG /D5W 100ML 500 MG in PREMIX 1 EA IV SCH (03:00)
[2021-09-27 04:00] VITALS: BP 106/61
--- NOTE | 2021-09-27 06:51 | NUR ---
RN NOTE NO CHANGES IN PT CONDITION DURING SHIFT. PT IS ON HIGH FLOW O2 AT 30L AND 60% FIO2. PT IS ALERT AND ORIENTED X4. ON TAPE MAKING MACHINE OPERATOR SHOWING NSR-ST. IV ACCESS NOTED ON LEFT FA #20. LINE FLUSHED, PATENT, AND INTACT WITH NO SIGNS OF INFILTRATION. ALL DUE MEDS GIVEN ORDERED. PT KEPT CLEAN AND COMFORTABLE. ALL SAFETY MEASURES IMPLEMENTED. CALL LIGHT WITHIN REACH. BED ALARM ON. BED LOCKED AND IN LOWEST POSITION. SIDE RAILS UP. WILL ENDORSE TO MORNING SHIFT RN FOR LAURA.
--- NOTE | 2021-09-27 07:29 | NUR ---
RN OPENING NOTE RECEIVED PATIENT IN BED A/0 X 4 PT IS ON HIGH FLOW O2 AT 30L AND 60% FIO2. ON SOLE LEATHER CUTTING MACHINE OPERATOR SHOWING NSR-ST. IV ACCESS ON LEFT FA #20. LINE FLUSHED, PATENT, AND INTACT WITH NO SIGNS OF INFILTRATION. NO CURRENT COMPLAINTS OF PAIN. ALL SAFETY MEASURES IMPLEMENTED. CALL LIGHT WITHIN REACH. BED ALARM ON. BED LOCKED AND IN LOWEST POSITION. SIDE RAILS UP.
[2021-09-27] MEDS: LORAZEPAM 1 MG TABLET PO PRN ×3 (08:13→20:09)
[2021-09-27] MEDS: PANTOPRAZOLE 40 MG TABLET.DR PO SCH (08:13)
[2021-09-27] MEDS: APIXABAN 5 MG TABLET PO SCH (08:14)
[2021-09-27] MEDS: HYDROCODONE/APAP 5/325MG TABLET PO PRN (08:44)
[2021-09-27] MEDS: DEXAMETHASONE SOD PHOSPHATE 10 MG/ML VIAL IV SCH (09:00)
[2021-09-27 09:19] LABS: ALBUMIN 2.3 g/dL (3.4-5.0); BILIRUBIN,TOTAL 0.7 mg/dL (0.2-1.0); CALCIUM, SERUM 7.6 mg/dL (8.5-10.1); CREATININE 0.8 mg/dL (0.6-1.3); MAGNESIUM 2.1 mg/dL (1.8-2.4); PHOSPHORUS 3.7 mg/dL (2.5-4.9); POTASSIUM 4.2 mmol/L (3.5-5.1); TOTAL PROTEIN, SERUM 5.4 g/dL (6.4-8.2)
--- NOTE | 2021-09-27 09:26 | NUR ---
RN NOTE PATIENTS IV ACCESS INFILTRATED, TRIED RE INSERTING IV X3 WITH NO SUCCESS, MIDLINE ORDERED PLACED.
[2021-09-27 10:22] LABS: BASOPHILS % (AUTO) 0.2 % (0.0-2.0); HEMATOCRIT 41 % (33-45); HEMOGLOBIN 13.4 g/dL (11.5-14.8); LYMPHOCYTES # (AUTO) 0.7 K/uL (0.8-4.8); MEAN CORPUSCULAR HGB CONC 33 g/dl (31.0-36.0); MEAN CORPUSCULAR VOLUME 90 fL (82-100); MONOCYTES # (AUTO) 0.5 K/uL (0.1-1.30); MONOCYTES % (AUTO) 4.4 % (2.0-12.0); NEUTROPHILS % (AUTO) 88.4 % (43.0-81.0); RED BLOOD CELL COUNT(AUTO) 4.51 MIL/uL (4.0-5.2); WHITE BLOOD COUNT (AUTO) 11.3 K/uL (4.3-11.0)
[2021-09-27 10:29] LABS: PLATELET COUNT (AUTO) 24 K/uL (150-450)
[2021-09-27 10:44] LABS: BILIRUBIN,URINE NEGATIVE (NEGATIVE); COLOR,URINE YELLOW (YELLOW); LEUKOCYTE ESTERASE ,URINE MODERATE (NEGATIVE); NITRITE, URINE NEGATIVE (NEGATIVE); PROTEIN,URINE TRACE mg/dl (NEGATIVE); UGLUCOSE NEGATIVE (NEGATIVE); UROBILINOGEN,URINE 0.2 EU/dL (0.2)
[2021-09-27 11:49] LABS: BACTERIA,URINE Many /HPF (None Seen); SQUAMOUS EPITHELIAL CELL,UR Few /HPF (None Seen)
[2021-09-27 12:00] VITALS: BP 100/64
[2021-09-27 13:20] LABS: BASOPHILS % (AUTO) 0.3 % (0.0-2.0); EOSINOPHILS % (AUTO) 0.1 % (0.0-6.0); HEMATOCRIT 40 % (33-45); HEMOGLOBIN 13.2 g/dL (11.5-14.8); LYMPHOCYTES # (AUTO) 0.8 K/uL (0.8-4.8); LYMPHOCYTES % (AUTO) 7.3 % (20.0-44.0); MEAN CORPUSCULAR HGB CONC 33 g/dl (31.0-36.0); MEAN CORPUSCULAR VOLUME 90 fL (82-100); MONOCYTES # (AUTO) 0.7 K/uL (0.1-1.30); MONOCYTES % (AUTO) 6.5 % (2.0-12.0); NEUTROPHILS # (AUTO) 9.2 K/uL (1.8-8.9); NEUTROPHILS % (AUTO) 85.8 % (43.0-81.0); RED BLOOD CELL COUNT(AUTO) 4.48 MIL/uL (4.0-5.2); WHITE BLOOD COUNT (AUTO) 10.8 K/uL (4.3-11.0)
[2021-09-27 13:26] LABS: PLATELET COUNT (AUTO) 19 K/uL (150-450)
[2021-09-27] MEDS: ONDANSETRON HCL/PF 4 MG/2 ML VIAL IVP PRN (16:28)
[2021-09-27 17:24] LABS: D-DIMER 6.16 mg/L(FEU (0.17-0.50)
[2021-09-27 17:43] LABS: THYROID STIMULATING HORMONE 1.84 uIU/mL (0.358-3.74)
--- NOTE | 2021-09-27 18:20 | NUR ---
RN NOTE RECEIVED CRITICAL LAB PLATELETS OF 27 DIRECTOR OF DIRECT MARKETING INFORMED, NO FURTHER ORDER LAST PLATELET COUNT WAS 19 ON 09/27/2021
--- NOTE | 2021-09-27 19:02 | NUR ---
RN CLOSING NOTE RECEIVED PATIENT IN BED A/0 X 4 PT IS ON HIGH FLOW O2 AT 30L AND 60% FIO2. ON GAS MASK INSPECTOR SHOWING NSR-ST. IV ACCESS ON LEFT FA MIDLINE . LINE FLUSHED, PATENT, AND INTACT. NO CURRENT COMPLAINTS OF PAIN. ALL SAFETY MEASURES IMPLEMENTED. CALL LIGHT WITHIN REACH. BED ALARM ON. BED LOCKED AND IN LOWEST POSITION. SIDE RAILS UP. WILL ENDORSE TO NIGHT NURSE FOR LAURA.
--- NOTE | 2021-09-27 19:10 | NUR ---
RN NOTE RECEIVED PTIENT IN BED RESTING ALERT ORIENTED X4 VERBALLY RESPONSIVE ON HIGH FLOW OXYGEN 30L FIO2:60% O2:90% IV SITE IS ON LEFT UPPER ARM MIDLINE INTACT PATENT CONTINET TO BOWEL/BLADDER,SAFETY MEASURE IMPLEMENT,CALL LIGHT WITHIN REACH CONTINUE TO MONITOR.
[2021-09-27 19:24] LABS: BAND % (MANUAL) 5 % (0.0-5.0); LYMPHOCYTES % (MANUAL) 4 % (16-48); MONOCYTES % (MANUAL) 9 % (0-11.0); NEUTROPHILS % (MANUAL) 81 (42-76)
[2021-09-27 19:25] LABS: METAMYELOCYTES % 1 % (0-0)
[2021-09-27 20:00] VITALS: BP 115/71
--- NOTE | 2021-09-27 20:10 | NUR ---
RN NOTE ATIVAN 1MG PO PRN GIVEN FOR ANXIETY CONTINUE TO MONITOR.
[2021-09-27] MEDS: ACETAMINOPHEN 325 MG TABLET PO PRN (22:15)
--- NOTE | 2021-09-27 22:15 | NUR ---
RN NOTE ACETAMINOPHEN 650 GIVEN FOR TEMPERATURE 101.1,CONTINUE TO MONITOR.
--- NOTE | 2021-09-27 23:43 | NUR ---
RN NOTE HYDROMORPHONE PRN GIVEN FOR PAIN 06/26 CONTINUE TO MONITOR
[2021-09-28 04:00] VITALS: BP 105/80
[2021-09-28] MEDS: LEVOFLOXACIN 500 MG /D5W 100ML 500 MG in PREMIX 1 EA IV SCH (04:07)
[2021-09-28] MEDS: HYDROMORPHONE 1 MG/1 ML DISP.SYRIN IV PRN ×5 (04:27→22:58)
--- NOTE | 2021-09-28 06:51 | NUR ---
RN NOTE PATIENT REMAINS ON ALERT ORIENTED X4 VERBALLY RESPONSIVE ON HIGH FLOW OXYGEN TACHYCARDIA ALL DUE MEDS GIVEN MD ORDERED KEPT CLEAN AND DRY ALL THE TIME,ENDORSE NEXT COMING SHIFT FOR CONTINUATION OF CARE.
[2021-09-28 07:11] LABS: CREATININE 0.8 mg/dL (0.6-1.3); MAGNESIUM 2.2 mg/dL (1.8-2.4); PHOSPHORUS 4.7 mg/dL (2.5-4.9); POTASSIUM 3.4 mmol/L (3.5-5.1)
[2021-09-28 07:28] LABS: D-DIMER 6.52 mg/L(FEU (0.17-0.50)
[2021-09-28] MEDS: PANTOPRAZOLE 40 MG TABLET.DR PO SCH (07:34)
[2021-09-28 07:37] LABS: BASOPHILS % (AUTO) 0.2 % (0.0-2.0); EOSINOPHILS % (AUTO) 0.4 % (0.0-6.0); HEMATOCRIT 40 % (33-45); HEMOGLOBIN 13.2 g/dL (11.5-14.8); LYMPHOCYTES # (AUTO) 0.9 K/uL (0.8-4.8); LYMPHOCYTES % (AUTO) 7.7 % (20.0-44.0); MEAN CORPUSCULAR HGB CONC 33 g/dl (31.0-36.0); MEAN CORPUSCULAR VOLUME 90 fL (82-100); MONOCYTES # (AUTO) 0.6 K/uL (0.1-1.30); MONOCYTES % (AUTO) 5.3 % (2.0-12.0); NEUTROPHILS # (AUTO) 9.5 K/uL (1.8-8.9); NEUTROPHILS % (AUTO) 86.4 % (43.0-81.0)
--- NOTE | 2021-09-28 07:44 | NUR ---
RN OPEN NOTE RECEIVED PATIENT IN BED A/0 X 4 PT IS ON HIGH FLOW O2 AT 30L AND 60% FIO2. SAT 92% ON CHRONIC CARE NURSE SHOWING HR 140, IV ACCESS ON LEFT FA MIDLINE . LINE FLUSHED, PATENT, AND INTACT. CURRENTLY COMPLAINING OF MUSCLE AND BACK PAIN REQUESTING ATIVAN AND DILANTIN, PATIENT IS VERY ANXIOUS, ALL SAFETY MEASURES IMPLEMENTED. CALL LIGHT WITHIN REACH. BED ALARM ON. BED LOCKED AND IN LOWEST POSITION. SIDE RAILS UP. WILL ADDRESS ALL HER NEEDS JOSELINE
[2021-09-28 08:00] VITALS: BP 104/77
[2021-09-28 08:03] LABS: PLATELET COUNT (AUTO) 29 K/uL (150-450)
[2021-09-28] MEDS: DEXAMETHASONE SOD PHOSPHATE 10 MG/ML VIAL IV SCH (08:05)
[2021-09-28] MEDS ORDERED: POTASSIUM CHLORIDE 20 MEQ TAB.PRT.SR PO SCH (10:00)
--- NOTE | 2021-09-28 10:00 | NUR ---
RN NOTE DOCTOR PELEG AT BED SIDE HIGH FLOW INCREASED TO 40L PT HR WENT DOWN TO 123 PT IS MORE CALM... WILL KEEP MONITORING
[2021-09-28 12:00] VITALS: BP 107/72
--- NOTE | 2021-09-28 13:30 | NUR ---
RN NOTE DUPLEX VENOUS POSITIVE FOR DVT BOTH ARMS, DOC NOTIFIED WILL KEEP MONITORING
--- NOTE | 2021-09-28 14:30 | NUR ---
RN NOTE DOCTOR AWARE OF POSITIVE DVT, ORDERED TO KEEP MIDLINE IN PLACE
--- NOTE | 2021-09-28 15:22 | NUR ---
RN NOTE WAITING FOR PHARMACY WITH THE CORRECT DOSE TO ADMINISTER ARGATROBAN
[2021-09-28 16:00] VITALS: BP 90/59
[2021-09-28] MEDS: ARGATROBAN 250 MG in IV D5W 247.5 ML IV PRN (16:15)
--- NOTE | 2021-09-28 18:22 | NUR ---
RN CLOSING NOTES PATIENT IS RESTING IN BED A/0 X 4 PT IS ON HIGH FLOW O2 AT 40L AND 60% FIO2. SAT 92% ON ACID TANK CLEANER SHOWING HR 105, IV ACCESS ON LEFT FA MIDLINE . FLUSHED, PATENT, AND INTACT RUNNING ARGATROBAN 0.2 MCG/ 1.12 ML/HR FOR POSITIVE DVT, PATIENT IS VERY ANXIOUS, ALL NEEDS MET DURING SHIFT, ISOLATION PRECAUTIONS IN PLACE, ALL SAFETY MEASURES IMPLEMENTED. CALL LIGHT WITHIN REACH. BED ALARM ON. BED LOCKED AND IN LOWEST POSITION. SIDE RAILS UP. WILL ENDORSE TO MARINE DESIGNERLEATHER SKINNER
--- NOTE | 2021-09-28 19:15 | NUR ---
1914 ARGATROBAN DRIP ORDER CLARIFIED WITH PHARMACIST ASHLEY, SHE SAID DO PTT EVERY 4 HOURS FOR NOW THEN CHANGE TO EVERY 6 HOURS ONCE PTT IS THERAPEUTIC FOR TWO CONSECUTIVE TIMES.
--- NOTE | 2021-09-28 19:30 | NUR ---
RN CLOSING NOTES RECEIVED CARE OF PATIENT WHILE PATIENT IN BED, HIGH FOWLERS POSITION, A/O X4, ABLE TO VERBALIZE NEEDS, PATIENT EXPRESSES GENERALIZED PAIN, REPOSITIONED FOR COMFORT. PATIENT IS ON HIGH FLOW O2 AT 40L AND 60% FIO2. O2 SAT 94%. PATIENT ON VISION REHABILITATION THERAPIST SHOWING SINUS TACH HR 115, IV ACCESS ON LEFT FA MIDLINE, PATENT AND INFUSING ARGATROBAN AT 0.3 MGC/MIN FOR POSITIVE DVT. ISOLATION PRECAUTIONS IN PLACE, ALL SAFETY MEASURES IMPLEMENTED. CALL LIGHT WITHIN REACH. BED ALARM ON. BED LOCKED AND IN LOWEST POSITION. SIDE RAILS UP. WILL CONTINUE TO MONITOR PATIENT FOR ANY CHANGES. Addendum: 09/29/21 at 0629 by SHELBIE MORENO RN RN OPENING NOTES
[2021-09-28 20:00] VITALS: BP 111/61
[2021-09-28] MEDS: LORAZEPAM 1 MG TABLET PO PRN (20:00)
[2021-09-28 21:25] LABS: BAND % (MANUAL) 6 % (0.0-5.0); LYMPHOCYTES % (MANUAL) 4 % (16-48); MONOCYTES % (MANUAL) 4 % (0-11.0); NEUTROPHILS % (MANUAL) 86 (42-76)
[2021-09-29] VITALS: BP 105/71
[2021-09-29] MEDS: HYDROMORPHONE 1 MG/1 ML DISP.SYRIN IV PRN ×5 (03:09→20:14)
[2021-09-29 04:00] VITALS: BP 140/78
[2021-09-29] MEDS: LEVOFLOXACIN 500 MG /D5W 100ML 500 MG in PREMIX 1 EA IV SCH (04:45)
--- NOTE | 2021-09-29 06:30 | NUR ---
RN NOTES WILL ENDORSE CARE OF PATIENT WHILE PATIENT IN BED, SLEEPING BUT WAKES UP TO NAME, ON HIGH FOWLERS POSITION, A/O X4, ABLE TO VERBALIZE NEEDS. PATIENT IS ON HIGH FLOW O2 AT 40L AND 60% FIO2. O2 SAT 93%. PATIENT ON CORRECTIONAL PROBATION OFFICER SHOWING SINUS TACH HR BETWEEN 105-120, IV ACCESS ON LEFT FA MIDLINE, PATENT AND INFUSING ARGATROBAN AT 0.4 MGC/MIN FOR POSITIVE DVT. ISOLATION PRECAUTIONS IN PLACE, ALL SAFETY MEASURES IMPLEMENTED. ALL DUE MEDS GIVEN. CALL LIGHT WITHIN REACH. BED ALARM ON. BED LOCKED AND IN LOWEST POSITION. SIDE RAILS UP. WILL ENDORSE TO DAY SHIFT NURSE FOR LAURA.
--- NOTE | 2021-09-29 07:07 | NUR ---
RN OPENING NOTES RECEIVED CARE OF PATIENT WHILE PATIENT IN BED, HIGH FOWLERS POSITION, A/O X4, ABLE TO VERBALIZE NEEDS, PATIENT EXPRESSES GENERALIZED PAIN, REPOSITIONED FOR COMFORT. PATIENT IS ON HIGH FLOW O2 AT 40L AND 60% FIO2. O2 SAT 92%. PATIENT ON TOOL AND PRODUCTION PLANNER SHOWING SINUS TACH HR 125, IV ACCESS ON LEFT FA MIDLINE AND L HAND G#22, PATENT AND INFUSING ARGATROBAN AT 0.3 MGC/MIN FOR POSITIVE DVT. ISOLATION PRECAUTIONS IN PLACE, ALL SAFETY MEASURES IMPLEMENTED. CALL LIGHT WITHIN REACH. BED ALARM ON. BED LOCKED AND IN LOWEST POSITION. SIDE RAILS UP. WILL CONTINUE TO MONITOR PATIENT FOR ANY CHANGES.
[2021-09-29 07:39] LABS: BASOPHILS # (AUTO) 0.1 K/uL (0.0-0.2); BASOPHILS % (AUTO) 0.6 % (0.0-2.0); EOSINOPHILS % (AUTO) 1.1 % (0.0-6.0); HEMATOCRIT 34 % (33-45); HEMOGLOBIN 11.5 g/dL (11.5-14.8); LYMPHOCYTES # (AUTO) 1.6 K/uL (0.8-4.8); LYMPHOCYTES % (AUTO) 9.8 % (20.0-44.0); MEAN CORPUSCULAR HGB CONC 33 g/dl (31.0-36.0); MEAN CORPUSCULAR VOLUME 88 fL (82-100); MONOCYTES # (AUTO) 1.1 K/uL (0.1-1.30); MONOCYTES % (AUTO) 6.7 % (2.0-12.0); NEUTROPHILS % (AUTO) 81.8 % (43.0-81.0); WHITE BLOOD COUNT (AUTO) 15.9 K/uL (4.3-11.0)
--- NOTE | 2021-09-29 07:49 | NUR ---
RN OPEN NOTES PATIENT RECEIVED SITTING IN BED, ON HIGH FOWLERS POSITION, A/O X4, ABLE TO VERBALIZE NEEDS. PATIENT IS ON HIGH FLOW O2 AT 40L AND 60% FIO2. O2 SAT 94%. PATIENT ON ION EXCHANGE OPERATOR SHOWING SINUS TACH HR BETWEEN 105-120, IV ACCESS ON LEFT FA MIDLINE, PATENT AND INFUSING ARGATROBAN AT 0.4 MGC/MIN FOR POSITIVE DVT. ISOLATION PRECAUTIONS IN PLACE, ALL SAFETY MEASURES IMPLEMENTED. CALL LIGHT WITHIN REACH. BED ALARM ON. BED LOCKED AND IN LOWEST POSITION. SIDE RAILS UP. POSSIBLE TRANSFER TO ICU WILL CONTINUE TO MONITOR
[2021-09-29 07:58] LABS: PLATELET COUNT (AUTO) 45 K/uL (150-450)
[2021-09-29 08:00] VITALS: BP 126/76
[2021-09-29 08:19] LABS: CALCIUM, SERUM 8.5 mg/dL (8.5-10.1); CREATININE 0.6 mg/dL (0.6-1.3); POTASSIUM 3.7 mmol/L (3.5-5.1)
[2021-09-29 08:24] LABS: MAGNESIUM 2.6 mg/dL (1.8-2.4); PHOSPHORUS 3.4 mg/dL (2.5-4.9)
[2021-09-29] MEDS: PANTOPRAZOLE 40 MG TABLET.DR PO SCH (08:54)
[2021-09-29] MEDS: DEXAMETHASONE SOD PHOSPHATE 10 MG/ML VIAL IV SCH (08:54)
[2021-09-29 09:34] LABS: LYMPHOCYTES % (MANUAL) 5 % (16-48); MONOCYTES % (MANUAL) 6 % (0-11.0); NEUTROPHILS % (MANUAL) 89 (42-76)
--- NOTE | 2021-09-29 10:00 | NUR ---
RN NOTE PER DOCTOR PELEG HOLD CT FOR LATER PT IS ON A HIGH FLOW OXYGEN
[2021-09-29] MEDS ORDERED: IOHEXOL-350 100 ML VIAL IV ONE (10:32)
[2021-09-29 12:00] VITALS: BP 106/68
[2021-09-29] MEDS: LORAZEPAM 1 MG TABLET PO PRN ×2 (13:20→19:40)
[2021-09-29 15:57] LABS: BASOPHILS % (AUTO) 0.2 % (0.0-2.0); EOSINOPHILS % (AUTO) 0.6 % (0.0-6.0); HEMATOCRIT 36 % (33-45); HEMOGLOBIN 11.8 g/dL (11.5-14.8); LYMPHOCYTES # (AUTO) 1.1 K/uL (0.8-4.8); LYMPHOCYTES % (AUTO) 7.5 % (20.0-44.0); MEAN CORPUSCULAR HGB CONC 33 g/dl (31.0-36.0); MEAN CORPUSCULAR VOLUME 90 fL (82-100); MONOCYTES # (AUTO) 0.5 K/uL (0.1-1.30); MONOCYTES % (AUTO) 3.5 % (2.0-12.0); NEUTROPHILS # (AUTO) 12.5 K/uL (1.8-8.9); NEUTROPHILS % (AUTO) 88.2 % (43.0-81.0); PLATELET COUNT (AUTO) 65 K/uL (150-450); RED BLOOD CELL COUNT(AUTO) 4.02 MIL/uL (4.0-5.2); WHITE BLOOD COUNT (AUTO) 14.1 K/uL (4.3-11.0)
[2021-09-29 16:00] VITALS: BP 115/68
[2021-09-29 16:16] LABS: C-REACTIVE PROTEIN 5.9 mg/dL (0.0-0.9)
[2021-09-29 17:42] LABS: BAND % (MANUAL) 2 % (0.0-5.0); LYMPHOCYTES % (MANUAL) 9 % (16-48); MONOCYTES % (MANUAL) 3 % (0-11.0); NEUTROPHILS % (MANUAL) 86 (42-76)
[2021-09-29] MEDS: ARGATROBAN 250 MG in IV D5W 247.5 ML IV PRN (17:42)
--- NOTE | 2021-09-29 18:38 | NUR ---
RN CLOSING NOTES PATIENT REMAINS SITTING IN BED, ON HIGH FOWLERS POSITION, A/O X4, ABLE TO VERBALIZE NEEDS. PATIENT IS ON HIGH FLOW O2 AT 40L AND 60% FIO2. O2 SAT 94%. PATIENT ON FACING END TRIMMER SHOWING SINUS R HR 100 IV ACCESS ON LEFT FA MIDLINE IS NOT WORKING PER DOCTOR DO NOT REMOVE IT YET, POSITIVE DVT IN BOTH ARMS, RIGHT HAND #22 G PATENT INTACT AND INFUSING ARGATROBAN AT 0.6 MGC/MIN, ISOLATION PRECAUTIONS IN PLACE, ALL SAFETY MEASURES IMPLEMENTED. CALL LIGHT WITHIN REACH. BED ALARM ON. BED LOCKED AND IN LOWEST POSITION. SIDE RAILS UP. WILL ENDORSE TO MELTER ASSISTANTRAILROAD CROSSING PROTECTION MAINTAINER
--- NOTE | 2021-09-29 19:54 | NUR ---
RN OPENING NOTE RECEIVED PATIENT IN BED, AWAKE. AOx2, NONVERBAL. ON TRACH 5LPM AND TOLERATING WELL. NO SOB NOTED. NO S/SX OF RESPIRATORY DISTRESS NOTED. ON TELE MONITOR, SINUS RHYTHM AND SINUS TACHYCARDIA DETECTED. IV ACCESS [place] MIDLINE, AND LAC 18G. IV IS INTACT, PATENT, AND FLUSHING WELL. SAFETY PRECAUTIONS IN PLACE: BED IN LOWEST, LOCKED POSITION, SIDERAILS UPx2, AND BRAKES ON. CALL LIGHT AND TABLE WITHIN REACH. WILL CONTINUE TO MONITOR.
[2021-09-29 20:00] VITALS: BP 111/78
[2021-09-29] MEDS: CALCIUM CARBONATE 500 MG TAB.CHEW PO PRN (23:18)
[2021-09-30] VITALS (11 sets, daily range): BP systolic 109–135; BP diastolic 68–88
[2021-09-30] MEDS: HYDROMORPHONE 1 MG/1 ML DISP.SYRIN IV PRN ×6 (00:18→23:50)
[2021-09-30] MEDS: LORAZEPAM 1 MG TABLET PO PRN ×4 (01:49→23:10)
[2021-09-30] MEDS: LEVOFLOXACIN 500 MG /D5W 100ML 500 MG in PREMIX 1 EA IV SCH (04:24)
[2021-09-30 05:08] LABS: HAPTOGLOBIN 163 mg/dL (33-278)
--- NOTE | 2021-09-30 05:45 | NUR ---
RN NOTES APTT RESULTS 37.1. WILL INCREASE ARGATROBAN DRIP BY 0.1MCG/KG/MIN PER DR. VANG PROTOCOL. ARGATROBAN INFUSING AT 1.0 MCG/KG/MIN. APTT DRAWING WILL BE ORDERED FOR 4 HOURS FROM NOW.
[2021-09-30 06:45] LABS: BASOPHILS % (AUTO) 0.4 % (0.0-2.0); EOSINOPHILS % (AUTO) 0.2 % (0.0-6.0); HEMATOCRIT 33 % (33-45); LYMPHOCYTES # (AUTO) 1.1 K/uL (0.8-4.8); LYMPHOCYTES % (AUTO) 12.8 % (20.0-44.0); MEAN CORPUSCULAR HGB CONC 34 g/dl (31.0-36.0); MEAN CORPUSCULAR VOLUME 89 fL (82-100); MONOCYTES # (AUTO) 0.8 K/uL (0.1-1.30); MONOCYTES % (AUTO) 8.9 % (2.0-12.0); NEUTROPHILS # (AUTO) 6.9 K/uL (1.8-8.9); NEUTROPHILS % (AUTO) 77.7 % (43.0-81.0); PLATELET COUNT (AUTO) 82 K/uL (150-450); RED BLOOD CELL COUNT(AUTO) 3.67 MIL/uL (4.0-5.2); WHITE BLOOD COUNT (AUTO) 8.9 K/uL (4.3-11.0)
--- NOTE | 2021-09-30 07:07 | NUR ---
RN OPENING NOTE RECEIVE REPORT FROM TOOL GRINDER NURSE. PATIENT IN STABLE CONDITION. ON HIGH FLOW NC AT 40L/MIN WITH 60% FIO2. AMBULATORY WITH ASSIST. REQUIRE ATIVAN AND DILAUDID AROUND THE CLOCK FOR PAIN AND COPING. ON ARGATROBAN DRIP. WILL FOLLOW UP APTT RESULT. PROPER ISOLATION PRECAUTION IN PLACE. ALL SAFETY MEASURE IN PLACE. BED ON LOWEST POSITION WITH HOB ELEVATED AND 3 SIDE RAIL UP. CALL LIGHT WITHIN REACH. WILL CONTINUE TO MONITOR.
--- NOTE | 2021-09-30 07:09 | NUR ---
RN CLOSING NOTES WILL ENDORSE PT TO AM NURSE, CURRENTLY IN PAIN, REPOSITIONED FOR COMFORT, ADMINISTERED PRN DILAUDID, MEDICATION EFFECTIVE. PATIENT IS ON HIGH FLOW O2 AT 40L AND 60% FIO2. O2 SAT 94%. PATIENT ON WALLPAPER HANGER SHOWING SINUS R HR 92 IV ACCESS ON LEFT FA MIDLINE IS NOT WORKING PER DOCTOR DO NOT REMOVE IT YET, POSITIVE DVT IN BOTH ARMS, RIGHT HAND #22 G PATENT INTACT AND INFUSING ARGATROBAN AT 0.6 MGC/MIN, ISOLATION PRECAUTIONS IN PLACE, ALL SAFETY MEASURES IMPLEMENTED. CALL LIGHT WITHIN REACH. BED ALARM ON. BED LOCKED AND IN LOWEST POSITION. SIDE RAILS UP. WILL ENDORSE TO RN AM SHIFT.
[2021-09-30 07:23] LABS: ALBUMIN 2.3 g/dL (3.4-5.0); BILIRUBIN,TOTAL 0.5 mg/dL (0.2-1.0); CREATININE 0.7 mg/dL (0.6-1.3); MAGNESIUM 2.5 mg/dL (1.8-2.4); PHOSPHORUS 4.1 mg/dL (2.5-4.9); POTASSIUM 3.5 mmol/L (3.5-5.1); TOTAL PROTEIN, SERUM 5.4 g/dL (6.4-8.2)
[2021-09-30] MEDS: PANTOPRAZOLE 40 MG TABLET.DR PO SCH (08:27)
[2021-09-30] MEDS: DEXAMETHASONE SOD PHOSPHATE 10 MG/ML VIAL IV SCH (08:27)
--- NOTE | 2021-09-30 12:16 | NUR ---
RN NOTE PTT RESULT CAME BACK AT AROUND 1200PM. PTT 42.1. ACCORDING TO TO ORDER, WILL INCREASE DOSING BY 0.05 MCG. PATIENT WILL BE GETTING 1.05 MCG/KG/MIN.
--- NOTE | 2021-09-30 13:57 | NUR ---
RN NOTE PATIENT WAS TRANSFER TO ICU. ON ARGATROBAN DRIP. PATIENT IN STABLE CONDITION AT TIME OF TRANSPORT. REPORT WAS GIVEN TO DERIK MACIAS.
[2021-09-30] MEDS: APIXABAN 5 MG TABLET PO SCH (17:08)
--- NOTE | 2021-09-30 19:00 | NUR ---
RN NOTE RECEIVED PATIENT IN BED, AO X 4, IN NO S/SX OF ACUTE DISTRESS AT THIS TIME. SATURATION AT 98% ON HIGH FLOW 30L AT 60% FIO2, SR ON THE MONITOR, HR IS 100. NOTED IV SITE AT L HAND 22G, PATENT AND FLUSHING WELL, AND SASHA MIDLINE, OCCLUDED PER REPORT, NOTED NOT TO BE REMOVED PER MD ORDER. SAFETY MEASURES IMPLEMENTED. PATIENT BED ALARM IS ON. HEAD OF BED ELEVATED. BED IS LOCKED, IN LOWEST POSITION AND SIDE RAILS UP. CALL LIGHT WITHIN REACH OF THE PATIENT. WILL CONTINUE TO MONITOR AND REASSESS FOR ANY CHANGES.
--- NOTE | 2021-09-30 19:30 | NUR ---
RN NOTES PT FOUND SITTING ON SIDE OF BED DISPLAYING NO S/S OF ACUTE DISTRESS, PT ENDORSES 9/10 PAIN (TREATED WITH DILAUDID PRN) AND BREATHING EVEN AND MINIMAL LABOR ON HIGH FLOW NC. R HAND 22G IV PATIENT AND INTACT. SBAR AND REPORT GIVEN TO OVEN HEATER RN. SAFETY MEASURES IN PLACE, BED LOCKED AND IN LOWEST POSITION, CALL LIGHT WITHIN REACH, PT INSTRUCTED TO CALL FOR ASSISTANCE. PT ENDORSED IN STABLE CONDITION FOR LAURA.
[2021-09-30 20:56] LABS: LYMPHOCYTES % (MANUAL) 13 % (16-48); MONOCYTES % (MANUAL) 7 % (0-11.0); NEUTROPHILS % (MANUAL) 80 (42-76)
[2021-10-01] VITALS (17 sets, daily range): BP systolic 94–126; BP diastolic 57–86
[2021-10-01] MEDS: HYDROMORPHONE 1 MG/1 ML DISP.SYRIN IV PRN ×6 (03:36→22:07)
--- NOTE | 2021-10-01 05:43 | NUR ---
RN NOTE PATIENT ASKING IF SHE CAN CONTINUE TAKING SUPPLEMENTS SHE TAKES AT HOME: VITAMIN D3 25 MCG, ASCORBIC ACID 1000 MG, AND ZINC MG. WILL ENDORSE TO AM SHIFT TO RELAY TO PRIMARY Addendum: 10/01/21 at 0644 by YOHANA DIEHL RN INCLUDES: MELATONIN 10 MG
[2021-10-01] MEDS: LORAZEPAM 1 MG TABLET PO PRN ×3 (05:55→20:40)
[2021-10-01 06:09] LABS: BASOPHILS # (AUTO) 0.1 K/uL (0.0-0.2); BASOPHILS % (AUTO) 0.6 % (0.0-2.0); EOSINOPHILS % (AUTO) 0.7 % (0.0-6.0); HEMATOCRIT 38 % (33-45); HEMOGLOBIN 12.3 g/dL (11.5-14.8); LYMPHOCYTES # (AUTO) 2.3 K/uL (0.8-4.8); LYMPHOCYTES % (AUTO) 21.8 % (20.0-44.0); MEAN CORPUSCULAR HGB CONC 33 g/dl (31.0-36.0); MEAN CORPUSCULAR VOLUME 90 fL (82-100); MONOCYTES # (AUTO) 0.9 K/uL (0.1-1.30); MONOCYTES % (AUTO) 8.5 % (2.0-12.0); NEUTROPHILS # (AUTO) 7.3 K/uL (1.8-8.9); NEUTROPHILS % (AUTO) 68.4 % (43.0-81.0); PLATELET COUNT (AUTO) 163 K/uL (150-450); RED BLOOD CELL COUNT(AUTO) 4.19 MIL/uL (4.0-5.2); WHITE BLOOD COUNT (AUTO) 10.7 K/uL (4.3-11.0)
[2021-10-01 06:42] LABS: ALBUMIN 2.7 g/dL (3.4-5.0); BILIRUBIN,TOTAL 0.5 mg/dL (0.2-1.0); CALCIUM, SERUM 8.6 mg/dL (8.5-10.1); CREATININE 0.8 mg/dL (0.6-1.3); MAGNESIUM 2.5 mg/dL (1.8-2.4); PHOSPHORUS 5.1 mg/dL (2.5-4.9); POTASSIUM 4.1 mmol/L (3.5-5.1); TOTAL PROTEIN, SERUM 6.1 g/dL (6.4-8.2)
--- NOTE | 2021-10-01 07:25 | NUR ---
RN NOTE PATIENT RECEIVED IN BED, ASLEEP. ON HFNC AT 30LPM 60%FIO2 WITH NO SIGNS OF LABORED BREATHING. LEFT UA MIDLINE IN PLACE, OCCLUDED, ORDERED TO LEAVE LINE IN PLACE DUE TO CURRENT DVT IN EXTREMITIES. LEFT HAND 22G IV IN PLACE, PATENT. BED LOCKED AND IN LOWEST POSITION, 3 SIDE RAILS UP, CALL LIGHT WITHIN REACH. WILL CONTINUE TO MONITOR.
[2021-10-01] MEDS ORDERED: ASCO-373 PO (07:27)
[2021-10-01] MEDS ORDERED: ZINC50TA39 PO (07:27)
[2021-10-01] MEDS ORDERED: CHOL100045 (07:27)
[2021-10-01] MEDS ORDERED: MELA5TAB PO ×2 (07:27)
[2021-10-01] MEDS: PANTOPRAZOLE 40 MG TABLET.DR PO SCH (08:06)
[2021-10-01] MEDS: DEXAMETHASONE SOD PHOSPHATE 10 MG/ML VIAL IV SCH (08:06)
[2021-10-01] MEDS: APIXABAN 5 MG TABLET PO SCH ×2 (08:07→16:40)
[2021-10-01] MEDS: ACETAMINOPHEN 325 MG TABLET PO PRN (08:22)
[2021-10-01] MEDS ORDERED: LEVOFLOXACIN (250MG) 250 MG TABLET PO SCH (09:00)
--- NOTE | 2021-10-01 14:50 | NUR ---
RHODA RN NOTE RECEIVED PATIENT FROM ICU 262, REPORT FROM TEMO MACIAS, PT IS AOX 4, ON5L O2 NASAL CANULA, O2 SAT 99%, NO SOB, RESPIRATION UNLABORED. DENIES PAIN. LEFT UA MIDLINE IN PLACE, OCCLUDED, MD ORDERED TO LEAVE LINE IN PLACE DUE TO CURRENT DVT IN EXTREMITIES. LEFT HAND 22G IV IN PLACE, FLUSHES WELL, SITE CLEAR. ON REGULAR DIET, POC DISCUSSED, BED LOCKED AND IN LOWEST POSITION, 3 SIDE RAILS UP, AMBULATORY WITH ASSIST. CALL LIGHT WITHIN REACH. WILL CONTINUE TO MONITOR.
--- NOTE | 2021-10-01 15:08 | NUR ---
RN NOTE PATIENT TRANSFERRED TO FIRST FLOOR, ZARIA STATUS. REPORT GIVEN TO ERIC MACIAS. PATIENT ON 5L O2 NC DURING TRANSFER, STABLE, SATURATING 99%, VITAL SIGNS STABLE.
--- NOTE | 2021-10-01 18:53 | NUR ---
TD RN NOTE PT RESTING COMFORTABLY IN BED, PATIENT SR Joe LUNSFORD. AWARE. NO SOB, DENIES PAIN. PM CARE DONE EARLIER. ALL NEEDS ATTENDED. KEPT CLEAN AND DRY. CALL LIGHT WITHIN REACH. WILL ENDORSE TO NEXT SHIFT FOR LAURA.
--- NOTE | 2021-10-01 20:00 | NUR ---
ZARIA RN OPEN NOTES RECEIVED PTS IN BED, ON HIGH FOWLERS POSITION, A/O X4, ABLE TO VERBALIZE NEEDS. PATIENT IS ON 5LITERS OF 02 VIA NC SATING 95% ON TELE MONITOR READING SR-ST WITH HR 105-120, IV ACCESS ON LEFT HAND 22 INTACT AND PATENT ,SASHA MIDLINE IN SITU .ISOLATION PRECAUTIONS IN PLACE, ALL SAFETY MEASURES IMPLEMENTED. CALL LIGHT WITHIN REACH. BED ALARM ON. BED LOCKED AND IN LOWEST POSITION. SIDE RAILS UP. V/S STABLE AFEBRILE. WILL CONTINUE TO MONITOR
--- NOTE | 2021-10-01 22:00 | NUR ---
ZARIA RN NOTES C/O BACK PAIN DILAUDID 1MG GIVEN ORDER, WILL CONTINUE TO MONITOR PTS.
[2021-10-02] VITALS: BP 118/77
[2021-10-02] MEDS: HYDROMORPHONE 1 MG/1 ML DISP.SYRIN IV PRN ×6 (02:23→22:31)
[2021-10-02 04:00] VITALS: BP 125/76
--- NOTE | 2021-10-02 07:30 | NUR ---
TD RN NOTE PATIENT IN BED, AOX 4, ON 5L O2 NASAL CANULA, O2 SAT 94%, NO SOB, RESPIRATION UNLABORED. DENIES PAIN. LEFT UA MIDLINE IN PLACE, OCCLUDED, MD ORDERED TO LEAVE LINE IN PLACE DUE TO CURRENT DVT IN EXTREMITIES. LEFT HAND 22G IV IN PLACE, FLUSHES WELL, SITE CLEAR. ON REGULAR DIET, POC DISCUSSED, BED LOCKED AND IN LOWEST POSITION, 3 SIDE RAILS UP, AMBULATORY WITH ASSIST. CALL LIGHT WITHIN REACH. WILL CONTINUE TO MONITOR.
--- NOTE | 2021-10-02 07:43 | NUR ---
marita rn notes Pts remains in bed a/ox4 on 5 liters of 02 via nc , no sob no distress at this time , will endorse to RN day shift for continuity of care.
[2021-10-02 08:00] VITALS: BP 110/74
[2021-10-02 08:09] LABS: ALBUMIN 2.6 g/dL (3.4-5.0); BILIRUBIN,TOTAL 0.4 mg/dL (0.2-1.0); CALCIUM, SERUM 8.2 mg/dL (8.5-10.1); CREATININE 0.8 mg/dL (0.6-1.3); MAGNESIUM 2.3 mg/dL (1.8-2.4); PHOSPHORUS 5.4 mg/dL (2.5-4.9); POTASSIUM 3.2 mmol/L (3.5-5.1); TOTAL PROTEIN, SERUM 5.7 g/dL (6.4-8.2)
[2021-10-02] MEDS: PANTOPRAZOLE 40 MG TABLET.DR PO SCH (08:13)
[2021-10-02] MEDS: DEXAMETHASONE SOD PHOSPHATE 10 MG/ML VIAL IV SCH (08:13)
[2021-10-02] MEDS: APIXABAN 5 MG TABLET PO SCH ×2 (08:14→17:18)
[2021-10-02] MEDS: LORAZEPAM 1 MG TABLET PO PRN ×2 (08:55→20:46)
--- NOTE | 2021-10-02 09:30 | NUR ---
RN NOTES DUE MEDS GIVEN
[2021-10-02] MEDS ORDERED: POTASSIUM CHLORIDE 20 MEQ TAB.PRT.SR PO SCH (10:00)
[2021-10-02 10:31] LABS: HEMATOCRIT 36 % (33-45); HEMOGLOBIN 11.9 g/dL (11.5-14.8); MEAN CORPUSCULAR HGB CONC 33 g/dl (31.0-36.0); MEAN CORPUSCULAR VOLUME 90 fL (82-100); PLATELET COUNT (AUTO) 200 K/uL (150-450); RED BLOOD CELL COUNT(AUTO) 4.03 MIL/uL (4.0-5.2); WHITE BLOOD COUNT (AUTO) 10.2 K/uL (4.3-11.0)
[2021-10-02 11:03] LABS: EOSINOPHILS % (MANUAL) 1 % (0-4); LYMPHOCYTES % (MANUAL) 20 % (16-48); MONOCYTES % (MANUAL) 3 % (0-11.0); NEUTROPHILS % (MANUAL) 76 (42-76)
[2021-10-02 12:00] VITALS: BP 114/74
[2021-10-02 16:00] VITALS: BP 94/61
--- NOTE | 2021-10-02 18:50 | NUR ---
TD RN NOTE PT RESTING COMFORTABLY IN BED, PATIENT ST HR 130s ON MONITOR. MD AWARE. ON 6L O2 NASAL CANULA SLIGHT SOB, DENIES PAIN. PM CARE DONE EARLIER. ALL NEEDS ATTENDED. KEPT CLEAN AND DRY. CALL LIGHT WITHIN REACH. WILL ENDORSE TO NEXT SHIFT FOR LAURA.
[2021-10-03] MEDS: HYDROMORPHONE 1 MG/1 ML DISP.SYRIN IV PRN ×6 (02:30→23:37)
[2021-10-03 04:00] VITALS: BP 140/83
--- NOTE | 2021-10-03 07:19 | NUR ---
RN NOTE PATIENT IS IN BED WITH HOB AT SEMI FOWLERS POSITION. PATIENT IS ON 6L NC WITH NO SIGNS OF LABORED BREATHING. PATIENT IS AOX4. SASHA MIDLINE IS PATENT AND INTACT. BED IS LOCKED IN THE LOWEST POSITION, 3 GUARD RAILS RAISED, CALL MASON WITHIN REACH, AND ALL HOSPITAL SAFETY PRECAUTIONS ARE BEING FOLLOWED. WILL CONTINUE TO MONITOR THROUGHOUT SHIFT.
--- NOTE | 2021-10-03 07:20 | NUR ---
PATIENT AWAKE AT THIS TIME, IN BED, A/OX3, ON OXYGEN 6L/MIN VIA NASAL CANNULA WITH EVEN AND UNLABORED BREATHING, C/O PERSISTENT PAIN/ANXIETY ON PAIN MANAGEMENT, AND ATIVAN FOR ANXIETY, OTHERWISE NO SIGNIFICANT CHANGE IN CONDITION DURING THE NIGHT, SAFETY MEASURES IN PLACE WITH BED IN LOW AND LOCKED, HOB ELEVATED IN SEMI FOWLERS, SIDE RAILS UP X 2, ENDORSED TO JACKI MACIAS FOR LAURA..
[2021-10-03 08:00] VITALS: BP 102/80
[2021-10-03] MEDS: DEXAMETHASONE SOD PHOSPHATE 10 MG/ML VIAL IV SCH (08:35)
[2021-10-03 08:36] LABS: BASOPHILS # (AUTO) 0.1 K/uL (0.0-0.2); BASOPHILS % (AUTO) 0.4 % (0.0-2.0); EOSINOPHILS % (AUTO) 2.2 % (0.0-6.0); HEMATOCRIT 38 % (33-45); HEMOGLOBIN 12.5 g/dL (11.5-14.8); LYMPHOCYTES # (AUTO) 2.9 K/uL (0.8-4.8); LYMPHOCYTES % (AUTO) 22.8 % (20.0-44.0); MEAN CORPUSCULAR HGB CONC 33 g/dl (31.0-36.0); MEAN CORPUSCULAR VOLUME 90 fL (82-100); MONOCYTES # (AUTO) 0.7 K/uL (0.1-1.30); MONOCYTES % (AUTO) 5.8 % (2.0-12.0); NEUTROPHILS # (AUTO) 8.7 K/uL (1.8-8.9); NEUTROPHILS % (AUTO) 68.8 % (43.0-81.0); PLATELET COUNT (AUTO) 343 K/uL (150-450); RED BLOOD CELL COUNT(AUTO) 4.27 MIL/uL (4.0-5.2); WHITE BLOOD COUNT (AUTO) 12.7 K/uL (4.3-11.0)
[2021-10-03] MEDS: APIXABAN 5 MG TABLET PO SCH ×2 (08:36→16:42)
[2021-10-03] MEDS: PANTOPRAZOLE 40 MG TABLET.DR PO SCH (08:38)
[2021-10-03 09:52] LABS: ALBUMIN 3.1 g/dL (3.4-5.0); BILIRUBIN,TOTAL 0.5 mg/dL (0.2-1.0); MAGNESIUM 2.2 mg/dL (1.8-2.4); PHOSPHORUS 5.4 mg/dL (2.5-4.9); POTASSIUM 3.5 mmol/L (3.5-5.1); TOTAL PROTEIN, SERUM 6.7 g/dL (6.4-8.2)
[2021-10-03] MEDS ORDERED: IOHEXOL-350 100 ML VIAL IV ONE ×2 (09:54→09:55)
[2021-10-03] MEDS ORDERED: IV NS 0.9% 250 ML IV ONE ×2 (09:55)
--- NOTE | 2021-10-03 11:00 | NUR ---
RN NOTE NOTIFIED DR. PRO OF PATIENTS L SIDED COMPLETE PNEUMOTHORAX AND RIGHT SIDED 15% PNEUMOTHORAX .
[2021-10-03 12:00] VITALS: BP 144/66
[2021-10-03] MEDS ORDERED: LIDOCAINE HCL/PF 1% 30 ML SDV IJ ONE ×2 (12:30→14:30)
[2021-10-03] MEDS ORDERED: MICAFUNGIN SODIUM 100 MG in IV NS 0.9% 100 ML IV SCH (15:00)
[2021-10-03] MEDS: MEROPENEM 1 G in IV NS 0.9% 100 ML IV SCH ×2 (15:09→20:15)
--- NOTE | 2021-10-03 15:10 | NUR ---
RN NOTE OKAY TO ADMINISTER DIALUDID EARLY PER DR. BELTRAN
[2021-10-03 16:00] VITALS: BP 108/70
[2021-10-03] MEDS ORDERED: VANCOMYCIN 1.25 GM in IV D5W 250 ML IV ONE (16:00)
[2021-10-03] MEDS: HYDROCODONE/APAP 5/325MG TABLET PO PRN (16:58)
[2021-10-03 17:38] LABS: C-REACTIVE PROTEIN 1.1 mg/dL (0.0-0.9)
--- NOTE | 2021-10-03 18:33 | NUR ---
RN NOTE PATIENT IS IN BED WITH HOB AT SEMI FOWLERS POSITION. PATIENT IS ON 6L NC WITH NO SIGNS OF LABORED BREATHING. PATIENT IS AOX4. SASHA MIDLINE IS PATENT AND INTACT. LEFT SIDED CHEST TUBE IN PLACE. SASHA MIDLINE AND L FOREARM IV ACCESS ARE PATENT AND INTACT. BED IS LOCKED IN THE LOWEST POSITION, 3 GUARD RAILS RAISED, CALL MASON WITHIN REACH, AND ALL HOSPITAL SAFETY PRECAUTIONS ARE BEING FOLLOWED. ALL DUE MEDS GIVEN. WILL ENDORSE TO SALES REPRESENTATIVE JEWELRY RN.
--- NOTE | 2021-10-03 19:40 | NUR ---
PATIENT IN BED A/O X4, PATIENT ON 6L NC WITH NO SOB/ACUTE DISTRESS NOTED, SINUS TACHY IN THE MONITOR WITH HR IN 110S AT THIS TIME, L FOREARM IV ACCESS AND SASHA MIDLINE IS PATENT AND INTACT, LEFT SIDED CHEST TUBE IN PLACE, MINIMUM BLOODY DRAINAGE NOTED, IN COMPARTMENT, HOB ON ELEVATED SEMI FOWLERS POSITION, LOCKED IN THE LOWEST POSITION, 3 GUARD RAILS UP, CALL LIGHT WITHIN REACH, ALL SAFETY PRECAUTIONS IMPLEMENTED, MEDICATED FOR PAIN AT THIS TIME, AND HAVING DINNER AT THIS TIME, WILL CONTINUE TO MONITOR CLOSELY.
[2021-10-03 20:00] VITALS: BP 116/79
[2021-10-04] VITALS: BP 130/80
[2021-10-04] MEDS: VANCOMYCIN 1 GM in IV D5W 250 ML IV SCH ×2 (03:41→16:07)
[2021-10-04] MEDS: HYDROMORPHONE 1 MG/1 ML DISP.SYRIN IV PRN ×5 (03:41→20:35)
[2021-10-04 04:00] VITALS: BP 105/69
[2021-10-04] MEDS: MEROPENEM 1 G in IV NS 0.9% 100 ML IV SCH ×3 (05:18→20:34)
--- NOTE | 2021-10-04 07:22 | NUR ---
PATIENT IN BED A/O X4, PATIENT ON 6L NC WITH NO SOB/ACUTE DISTRESS NOTED, SINUS TACHY IN THE MONITOR WITH HR IN 110S MOSTLY THROUGHOUT THE NIGHT, L FOREARM IV ACCESS AND SASHA MIDLINE IS PATENT AND INTACT, LEFT SIDED CHEST TUBE IN PLACE, WITH 105CC BLOODY DRAINAGE IN MY SHIFT, OTHERWISE NO SIGNIFICANT CHANGE IN CONDITION DURING THE NIGHT, HOB ON SEMI FOWLERS POSITION, BED LOCKED IN THE LOWEST POSITION, 3 GUARD RAILS UP, CALL LIGHT WITHIN REACH, ON PAIN MANAGEMENT, ENDORSED TO TEMO MACIAS FOR CONTINUATION OF CARE
[2021-10-04 08:00] VITALS: BP 108/75
[2021-10-04] MEDS: DEXAMETHASONE SOD PHOSPHATE 10 MG/ML VIAL IV SCH (08:06)
[2021-10-04] MEDS: PANTOPRAZOLE 40 MG TABLET.DR PO SCH (08:06)
[2021-10-04] MEDS: APIXABAN 5 MG TABLET PO SCH ×2 (08:07→16:06)
[2021-10-04 08:22] LABS: BASOPHILS % (AUTO) 0.3 % (0.0-2.0); EOSINOPHILS % (AUTO) 3.4 % (0.0-6.0); HEMATOCRIT 35 % (33-45); HEMOGLOBIN 11.6 g/dL (11.5-14.8); LYMPHOCYTES # (AUTO) 1.5 K/uL (0.8-4.8); LYMPHOCYTES % (AUTO) 17.5 % (20.0-44.0); MEAN CORPUSCULAR HGB CONC 33 g/dl (31.0-36.0); MEAN CORPUSCULAR VOLUME 89 fL (82-100); MONOCYTES # (AUTO) 0.5 K/uL (0.1-1.30); MONOCYTES % (AUTO) 5.5 % (2.0-12.0); NEUTROPHILS # (AUTO) 6.5 K/uL (1.8-8.9); NEUTROPHILS % (AUTO) 73.3 % (43.0-81.0); PLATELET COUNT (AUTO) 317 K/uL (150-450); RED BLOOD CELL COUNT(AUTO) 3.91 MIL/uL (4.0-5.2); WHITE BLOOD COUNT (AUTO) 8.9 K/uL (4.3-11.0)
[2021-10-04 08:27] LABS: ALBUMIN 2.6 g/dL (3.4-5.0); BILIRUBIN,TOTAL 0.5 mg/dL (0.2-1.0); CALCIUM, SERUM 8.4 mg/dL (8.5-10.1); MAGNESIUM 2.1 mg/dL (1.8-2.4); PHOSPHORUS 4.5 mg/dL (2.5-4.9); POTASSIUM 2.9 mmol/L (3.5-5.1); TOTAL PROTEIN, SERUM 5.9 g/dL (6.4-8.2)
[2021-10-04] MEDS: POTASSIUM CHLORIDE 20 MEQ TAB.PRT.SR PO SCH ×3 (10:50→12:50)
[2021-10-04 12:00] VITALS: BP 94/58
[2021-10-04 16:00] VITALS: BP 98/73
--- NOTE | 2021-10-04 19:00 | NUR ---
RN NOTE PATIENT REMAINS IN BED, ON 5L O2 NC WITH NO SIGNS OF LABORED BREATHING AT THIS TIME. LEFT CHEST TUBE IN PLACE, PATENT AND DRAINING. LEFT UA MIDLINE AND LEFT FA 22G IN PLACE. MIDLINE OCCLUDED, ORDERED TO LEAVE IN PLACE DUE TO DVT AT THIS TIME. ALL NEEDS ATTENDED DURING SHIFT. BED LOCKED AND IN LOWEST POSITION, CALL LIGHT WITHIN REACH, 3 SIDE RAILS UP. WILL ENDORSE TO RAILROAD CROSSING PROTECTION MAINTAINER NURSE.
--- NOTE | 2021-10-04 19:30 | NUR ---
PATIENT IN BED A/O X4, PATIENT ON 5L NC WITH NO SOB/ACUTE DISTRESS NOTED, SR /TACHY IN THE MONITOR WITH HR IN 90-110S AT THIS TIME, L FOREARM IV ACCESS AND SASHA MIDLINE IS PATENT AND INTACT, LEFT SIDED CHEST TUBE IN PLACE, SECURED, MINIMUM BLOODY DRAINAGE NOTED, IN COMPARTMENT, HOB ON ELEVATED, LOCKED AND IN THE LOWEST POSITION, 3 GUARD RAILS UP, CALL LIGHT WITHIN REACH, WILL CONTINUE TO MONITOR CLOSELY.
[2021-10-04 20:00] VITALS: BP 112/64
[2021-10-05] VITALS: BP 118/76
[2021-10-05] MEDS: HYDROMORPHONE 1 MG/1 ML DISP.SYRIN IV PRN ×5 (00:30→21:26)
[2021-10-05] MEDS: LORAZEPAM 1 MG TABLET PO PRN (01:07)
[2021-10-05 03:30] LABS: BASOPHILS # (AUTO) 0.1 K/uL (0.0-0.2); BASOPHILS % (AUTO) 0.6 % (0.0-2.0); EOSINOPHILS % (AUTO) 2.4 % (0.0-6.0); HEMATOCRIT 35 % (33-45); HEMOGLOBIN 11.6 g/dL (11.5-14.8); LYMPHOCYTES # (AUTO) 1.5 K/uL (0.8-4.8); LYMPHOCYTES % (AUTO) 16.7 % (20.0-44.0); MEAN CORPUSCULAR HGB CONC 33 g/dl (31.0-36.0); MEAN CORPUSCULAR VOLUME 89 fL (82-100); MONOCYTES # (AUTO) 0.5 K/uL (0.1-1.30); MONOCYTES % (AUTO) 5.7 % (2.0-12.0); NEUTROPHILS # (AUTO) 6.7 K/uL (1.8-8.9); NEUTROPHILS % (AUTO) 74.6 % (43.0-81.0); PLATELET COUNT (AUTO) 331 K/uL (150-450); RED BLOOD CELL COUNT(AUTO) 3.91 MIL/uL (4.0-5.2)
[2021-10-05 03:44] LABS: CALCIUM, SERUM 8.5 mg/dL (8.5-10.1); CREATININE 0.9 mg/dL (0.6-1.3); POTASSIUM 4.1 mmol/L (3.5-5.1)
[2021-10-05 04:00] VITALS: BP 114/78
[2021-10-05] MEDS ORDERED: VANCOMYCIN 1 GM VIAL ONE (04:19)
[2021-10-05] MEDS: VANCOMYCIN 1 GM in IV D5W 250 ML IV SCH ×2 (04:21→16:30)
[2021-10-05] MEDS: MEROPENEM 1 G in IV NS 0.9% 100 ML IV SCH ×2 (05:48→12:03)
[2021-10-05] MEDS: PANTOPRAZOLE 40 MG TABLET.DR PO SCH (07:12)
[2021-10-05 08:00] VITALS: BP 103/74
[2021-10-05] MEDS: DEXAMETHASONE SOD PHOSPHATE 10 MG/ML VIAL IV SCH (08:35)
[2021-10-05] MEDS: APIXABAN 5 MG TABLET PO SCH ×2 (08:36→16:24)
[2021-10-05 12:00] VITALS: BP 119/79
[2021-10-05 16:00] VITALS: BP 101/75
--- NOTE | 2021-10-05 19:20 | NUR ---
RN NOTES RECEIVED REPORT FROM MORNING RN. PATIENT A/O X4 ABLE TO MAKE NEEDS KNOWN. ON NASAL CANULA AT 5LMP TOLERATING WELL SATING 99%. NO DISTRESS NO SOB NOTED AT THIS TIME. WITH SASHA MIDLINE, LFA #22 PATENT FLUSHES WELL. WITH L SIDE CHEST TUBE CONNECTED TO SUCTION INTACT AND SECURE WITH SEROSANGUINEOUS DRAINAGE IN MINIMAL AMOUNT. VITAL SIGNS TAKEN AND RECORDED AFEBRILE.ALL SAFETY MEASURES IN PLACE. BED ON LOWEST POSITION AND LOCKED. CALL LIGHT WITHIN REACH. WILL CLOSELY MONITOR THE PATIENT.
--- NOTE | 2021-10-05 19:40 | NUR ---
PATIENT IN BED A/O X4, PATIENT ON 5L NC WITH NO SOB/ACUTE DISTRESS NOTED, SINUS TACHY IN THE MONITOR WITH HR 90-100 MOSTLY FOREARM IV ACCESS AND SASHA MIDLINE IS PATENT AND INTACT, LEFT SIDED CHEST TUBE IN PLACE, WITH 20CC IN THE LAST 24HRS, NOT THAT MUCH DRAINAGE, ON PAIN MANAGEMENT, OTHERWISE NO SIGNIFICANT CHANGE IN CONDITION DURING THE NIGHT, HOB ON SEMI FOWLERS POSITION, BED LOCKED IN THE LOWEST POSITION, 3 GUARD RAILS UP, CALL LIGHT WITHIN REACH, ENDORSED TO GILBERTO SEXTON FOR CONTINUATION OF CARE.
[2021-10-05 20:00] VITALS: BP 106/69
[2021-10-06] VITALS: BP 101/68
[2021-10-06] MEDS: HYDROMORPHONE 1 MG/1 ML DISP.SYRIN IV PRN ×6 (01:26→21:22)
[2021-10-06] MEDS: VANCOMYCIN 1 GM in IV D5W 250 ML IV SCH (03:54)
[2021-10-06 04:00] VITALS: BP 105/76
[2021-10-06 06:52] LABS: CALCIUM, SERUM 8.3 mg/dL (8.5-10.1); CREATININE 0.9 mg/dL (0.6-1.3); POTASSIUM 3.3 mmol/L (3.5-5.1)
--- NOTE | 2021-10-06 06:55 | NUR ---
RN NOTES PATIENT REMAINS STABLE CONDITION NO SIGNIFICANT CHANGES. ON OXYGEN INHALATION AT 4LPM VIA NC TOLERATING WELL SATING 98%. L CHEST TUBE INTACT AND SECURED WITH 20CC OUTPUT THIS SHIFT. ALL DUE MEDS GIVEN ORDERED. ALL SAFETY MEASURES IN PLACE AT ALL TIMES CALL LIGHT WITHIN REACH. HOB ELEVATED. BED ON LOWEST POSITION AND LOCKED. PAIN MEDICATION GIVEN ROUTINELY REQUESTED BY PATIENT FOR PAIN. WILL ENDORSED TO MORNING NURSE.
[2021-10-06 07:07] LABS: BASOPHILS # (AUTO) 0.1 K/uL (0.0-0.2); BASOPHILS % (AUTO) 0.6 % (0.0-2.0); HEMATOCRIT 33 % (33-45); HEMOGLOBIN 10.8 g/dL (11.5-14.8); LYMPHOCYTES # (AUTO) 1.7 K/uL (0.8-4.8); LYMPHOCYTES % (AUTO) 19.1 % (20.0-44.0); MEAN CORPUSCULAR HGB CONC 33 g/dl (31.0-36.0); MEAN CORPUSCULAR VOLUME 90 fL (82-100); MONOCYTES # (AUTO) 0.6 K/uL (0.1-1.30); MONOCYTES % (AUTO) 6.2 % (2.0-12.0); NEUTROPHILS # (AUTO) 6.3 K/uL (1.8-8.9); NEUTROPHILS % (AUTO) 70.1 % (43.0-81.0); PLATELET COUNT (AUTO) 340 K/uL (150-450); RED BLOOD CELL COUNT(AUTO) 3.65 MIL/uL (4.0-5.2); WHITE BLOOD COUNT (AUTO) 8.9 K/uL (4.3-11.0)
--- NOTE | 2021-10-06 07:33 | NUR ---
DEPUTY CLERK OF COURT OPENING NOTES RECEIVED PATIENT IN BED, A/O X4. ON NASAL CANULA AT 5LMP TOLERATING WELL SATING AT 97%. NO DISTRESS NO SOB NOTED AT THIS TIME. WITH SASHA MIDLINE, LFA #22 PATENT FLUSHES WELL. WITH L SIDE CHEST TUBE CONNECTED TO SUCTION INTACT AND SECURE WITH SEROSANGUINEOUS DRAINAGE IN MINIMAL AMOUNT. VITAL SIGNS TAKEN AND RECORDED AFEBRILE.ALL SAFETY MEASURES IN PLACE. BED ON LOWEST POSITION AND LOCKED. CALL LIGHT WITHIN REACH. WILL CLOSELY MONITOR THE PATIENT.
[2021-10-06 08:00] VITALS: BP 113/82
[2021-10-06] MEDS: APIXABAN 5 MG TABLET PO SCH ×2 (08:13→16:07)
[2021-10-06] MEDS: DEXAMETHASONE SOD PHOSPHATE 10 MG/ML VIAL IV SCH (08:14)
[2021-10-06] MEDS: PANTOPRAZOLE 40 MG TABLET.DR PO SCH (08:14)
[2021-10-06] MEDS ORDERED: POTASSIUM CHLORIDE 20 MEQ TAB.PRT.SR PO SCH (09:30)
[2021-10-06 12:00] VITALS: BP 135/60
[2021-10-06 16:00] VITALS: BP 130/58
--- NOTE | 2021-10-06 18:19 | NUR ---
RN ANESTHETIST CLOSING NOTES PATIENT REMAINS IN STABLE CONDITION NO SIGNIFICANT CHANGES. OXYGEN SUPPLEMENTATION VIA NASAL CANNULA AT 4L TOLERATING WELL, SATING AT 96%. L CHEST TUBE INTACT AND SECURED WITH 60CC OUTPUT THIS SHIFT. ALL DUE MEDS GIVEN ORDERED. ALL SAFETY MEASURES IN PLACE AT ALL TIMES CALL LIGHT WITHIN REACH. HOB ELEVATED. NO SIGNS OF DISTRESS. NO SOB AND BREATHING SYMMETRICAL. BED ON LOWEST POSITION AND LOCKED. PAIN MEDICATION GIVEN ROUTINELY REQUESTED BY PATIENT FOR PAIN. WILL ENDORSED TO DEVELOPMENT EDUCATOR NURSE.
[2021-10-06 20:00] VITALS: BP 106/58
[2021-10-07] VITALS: BP 120/76
[2021-10-07] MEDS: HYDROMORPHONE 1 MG/1 ML DISP.SYRIN IV PRN ×5 (01:43→20:41)
[2021-10-07 04:00] VITALS: BP 121/78
--- NOTE | 2021-10-07 06:57 | NUR ---
PATIENT IN BED A/O X4, PATIENT ON 4L NC WITH NO SOB/ACUTE DISTRESS NOTED, NSR MONITOR WITH HR IN 80-90S MOSTLY THROUGHOUT THE NIGHT, LEFT SIDED CHEST TUBE IN PLACE, WITH 10CC SEROSANGUINEOUS DRAINAGE IN MY SHIFT, OTHERWISE NO SIGNIFICANT CHANGE IN CONDITION DURING THE NIGHT, HOB ON SEMI FOWLERS POSITION, BED LOCKED IN THE LOWEST POSITION, 3 GUARD RAILS UP, CALL LIGHT WITHIN REACH, ON PAIN MANAGEMENT, WILL ENDORSE CONTINUITY OF CARE TO ONCOMING NURSE.
--- NOTE | 2021-10-07 07:36 | NUR ---
CATERING DIRECTOR OPENING NOTES RECEIVED PATIENT IN BED, A/O X4. ON NASAL CANULA AT 4L TOLERATING WELL SATING AT 97%. NO DISTRESS NO SOB NOTED AT THIS TIME. LFA #22 PATENT FLUSHES WELL. WITH L SIDE CHEST TUBE CONNECTED TO SUCTION INTACT AND SECURE WITH SEROSANGUINEOUS DRAINAGE IN MINIMAL AMOUNT. VITAL SIGNS TAKEN AND RECORDED AFEBRILE.ALL SAFETY MEASURES IN PLACE. BED ON LOWEST POSITION AND LOCKED. CALL LIGHT WITHIN REACH. WILL CLOSELY MONITOR THE PATIENT.
[2021-10-07 07:55] LABS: BASOPHILS % (AUTO) 0.6 % (0.0-2.0); HEMATOCRIT 31 % (33-45); HEMOGLOBIN 10.6 g/dL (11.5-14.8); LYMPHOCYTES # (AUTO) 1.7 K/uL (0.8-4.8); LYMPHOCYTES % (AUTO) 20.6 % (20.0-44.0); MEAN CORPUSCULAR HGB CONC 34 g/dl (31.0-36.0); MEAN CORPUSCULAR VOLUME 90 fL (82-100); MONOCYTES # (AUTO) 0.6 K/uL (0.1-1.30); MONOCYTES % (AUTO) 6.8 % (2.0-12.0); NEUTROPHILS # (AUTO) 5.4 K/uL (1.8-8.9); PLATELET COUNT (AUTO) 376 K/uL (150-450); RED BLOOD CELL COUNT(AUTO) 3.47 MIL/uL (4.0-5.2); WHITE BLOOD COUNT (AUTO) 8.3 K/uL (4.3-11.0)
[2021-10-07 07:56] LABS: CALCIUM, SERUM 8.1 mg/dL (8.5-10.1); CREATININE 0.7 mg/dL (0.6-1.3); POTASSIUM 3.5 mmol/L (3.5-5.1)
[2021-10-07 08:00] VITALS: BP 135/60
[2021-10-07] MEDS: PANTOPRAZOLE 40 MG TABLET.DR PO SCH (08:19)
[2021-10-07] MEDS: DEXAMETHASONE SOD PHOSPHATE 10 MG/ML VIAL IV SCH (08:19)
[2021-10-07] MEDS: APIXABAN 5 MG TABLET PO SCH ×2 (08:20→16:59)
--- NOTE | 2021-10-07 09:05 | NUR ---
ZARIA RN NOTE ASSISTED TO BSC ABLE TO MAKE BM KEEP CLEAN DRY
--- NOTE | 2021-10-07 11:00 | NUR ---
marita rn note Melissa rn nonprofit director at bedside, updated patient coition, no need ct scan head at this time
[2021-10-07] MEDS: ASCORBIC ACID 500 MG TABLET PO SCH (11:45)
[2021-10-07] MEDS: TRAMADOL HCL 50 MG TABLET PO SCH ×2 (11:45→23:44)
[2021-10-07] MEDS: ZINC SULFATE 220 MG CAPSULE PO SCH (11:46)
[2021-10-07 12:00] VITALS: BP 119/73
[2021-10-07 16:00] VITALS: BP 126/70
--- NOTE | 2021-10-07 18:14 | NUR ---
PLASMA PROCESSING CENTRIFUGE OPERATOR CLOSING NOTES PATIENT REMAINS IN STABLE CONDITION NO SIGNIFICANT CHANGES. OXYGEN SUPPLEMENTATION VIA NASAL CANNULA AT 4L TOLERATING WELL, SATING AT 96%. L CHEST TUBE INTACT AND SECURED WITH 50CC OUTPUT THIS SHIFT. ALL DUE MEDS GIVEN ORDERED. ALL SAFETY MEASURES IN PLACE AT ALL TIMES CALL LIGHT WITHIN REACH. HOB ELEVATED. NO SIGNS OF DISTRESS. NO SOB AND BREATHING SYMMETRICAL. BED ON LOWEST POSITION AND LOCKED. PAIN MEDICATION GIVEN ROUTINELY REQUESTED BY PATIENT FOR PAIN. WILL ENDORSE TO REHABILITATION CASEWORKER NURSE.
--- NOTE | 2021-10-07 19:10 | NUR ---
RN NOTES RECEIVED REPORT FROM MORNING RN. PATIENT A/O X4WITH OXYGEN INHALATION AT 4 LPM VIA NASAL CANULA TOLERATING WELL SATING 98%. NO DISTRESS NO SOB NOTED AT THIS TIME. WITH IV ACCES AT LFA #22, SASHA MIDLINE # 18 PATENT FLUSHES WELL. WITH L CHEST TUBE CONNECTED TO SUCTION PATENT AND INTACT SECURE WELL. VITAL SIGNS TAKEN AND RECORDED AFEBRILE. ALL SAFETY MEASURES IN PLACE AT ALL TIMES. HOB ELEVATED. CALL LIGHT WITHIN REACH. WILL CONTINUE TO MONITOR CLOSELY.
[2021-10-07 20:00] VITALS: BP 111/68
[2021-10-08] VITALS: BP 109/66
[2021-10-08] MEDS: CALCIUM CARBONATE 500 MG TAB.CHEW PO PRN (03:26)
[2021-10-08] MEDS: HYDROMORPHONE 1 MG/1 ML DISP.SYRIN IV PRN ×4 (03:27→20:06)
[2021-10-08 04:00] VITALS: BP 100/68
--- NOTE | 2021-10-08 06:55 | NUR ---
RN NOTES PATIENT REMAINS STABLE THE WHOLE SHIFT NO SIGNIFICANT CHANGES IN HEALTH CONDITION. NO DISTRESS NOTED. STILL ON OXYGEN INHALATION AT 4LPM VIA NC TOLERATING WELL SATING 99%. PATIENT USING A COMMODE WITH ASSIST. STILL WITH CHEST TUBE INTACT AND SECURE WITH 50CC DRAINAGE. ALL DUE MEDS GIVEN ORDERED. ALL SAFETY MEASURES IN PLACE AT ALL TIMES. HOB ELEVATED. CALL LIGHT WITHIN REACH. BED ON LOWEST POSITION AND LOCKED. ALL NEEDS ATTENDED PROMPTLY. WILL ENDORSED TO MORNING RN FOR LAURA
--- NOTE | 2021-10-08 07:30 | NUR ---
RN MORNING NOTE PT OBSERVED SITTING UP IN BED. PT ON 4L NC SAT 99% TOLERATING WELL WITH NO LABORED BREATHING OR DISTRESS. PT A/OX4 WITH BRP AND ON TELE MONITOR SR. PT ALSO HAS L CHEST TUBE TO SUCTION, IV ACCESS L UA MIDLINE 18G AND L FA 22G. PT ON REGULAR DIET. BED IS LOCKED IN LOWEST POSITION X2 GUARD RAILS UP, CALL MASON WITHIN REACH, WILL CONTINUE TO MONITOR THIS SHIFT.
[2021-10-08] MEDS: PANTOPRAZOLE 40 MG TABLET.DR PO SCH (07:52)
[2021-10-08 08:00] VITALS: BP 107/67
[2021-10-08 08:15] LABS: BASOPHILS # (AUTO) 0.1 K/uL (0.0-0.2); BASOPHILS % (AUTO) 0.5 % (0.0-2.0); EOSINOPHILS % (AUTO) 5.3 % (0.0-6.0); HEMATOCRIT 32 % (33-45); HEMOGLOBIN 10.7 g/dL (11.5-14.8); LYMPHOCYTES # (AUTO) 2.1 K/uL (0.8-4.8); LYMPHOCYTES % (AUTO) 19.3 % (20.0-44.0); MEAN CORPUSCULAR HGB CONC 33 g/dl (31.0-36.0); MEAN CORPUSCULAR VOLUME 91 fL (82-100); MONOCYTES # (AUTO) 0.6 K/uL (0.1-1.30); MONOCYTES % (AUTO) 5.6 % (2.0-12.0); NEUTROPHILS # (AUTO) 7.7 K/uL (1.8-8.9); NEUTROPHILS % (AUTO) 69.3 % (43.0-81.0); PLATELET COUNT (AUTO) 396 K/uL (150-450); RED BLOOD CELL COUNT(AUTO) 3.53 MIL/uL (4.0-5.2); WHITE BLOOD COUNT (AUTO) 11.1 K/uL (4.3-11.0)
[2021-10-08] MEDS: DEXAMETHASONE SOD PHOSPHATE 10 MG/ML VIAL IV SCH (09:29)
[2021-10-08] MEDS: ZINC SULFATE 220 MG CAPSULE PO SCH (09:29)
[2021-10-08] MEDS: CHOLECALCIFEROL (VITAMIN D 3) 400 UNIT TABLET PO SCH (09:29)
[2021-10-08] MEDS: ASCORBIC ACID 500 MG TABLET PO SCH (09:29)
[2021-10-08] MEDS: APIXABAN 5 MG TABLET PO SCH ×2 (09:48→17:28)
[2021-10-08 09:54] LABS: CALCIUM, SERUM 8.1 mg/dL (8.5-10.1); CREATININE 0.7 mg/dL (0.6-1.3); POTASSIUM 3.1 mmol/L (3.5-5.1)
[2021-10-08] MEDS ORDERED: POTASSIUM CHLORIDE 20 MEQ TAB.PRT.SR PO ONE ×2 (11:30→18:00)
[2021-10-08] MEDS: TRAMADOL HCL 50 MG TABLET PO SCH ×2 (11:30→23:30)
[2021-10-08 12:00] VITALS: BP 126/72
[2021-10-08 16:00] VITALS: BP 102/63
--- NOTE | 2021-10-08 18:57 | NUR ---
RN CLOSING NOTE PT IS SITTING UP IN BED. PT ON 4L NC SAT 99% TOLERATING WELL WITH NO LABORED BREATHING OR DISTRESS. PT A/OX4 WITH BRP AND ON TELE MONITOR SR. PT ALSO HAS L CHEST TUBE TO SUCTION, IV ACCESS L FA 22G. PT ON REGULAR DIET. 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
--- NOTE | 2021-10-08 19:15 | NUR ---
RN NOTES: RECEIVED AWAKE ON BED, A/OX4, ON O2 AT 4L/MIN VIA NC SPO2-99%, NO SIGN OF SOB OR RESPIRATORY DISTRESS UPON ENDORSEMENT, ABLE TO MAKE NEEDS KNOWN, WITH LEFT CHEST TUBE ATTACHED TO SUCTION, FLUID GOES UP AND DOWN THE PATIENT BREATH,NO COMPLAINTS OF DISCOMFORT IN THE CHEST TUBE AREA. OUTPUT ON THE LEVEL OF 1350, ON TIMBER ESTIMATOR [id number] , ORIENTED TO UNIT AND STAFF,BED LOW AND LOCKED, KEPT CALL LIGHT WITHIN EASY REACH.
[2021-10-08 20:00] VITALS: BP 111/59
--- NOTE | 2021-10-08 20:06 | NUR ---
RN NOTES: REQUEST TO GIVE HER PAIN MEDICATION, PAIN 10/10, OFFERED FOR TABLET BUT SHE PREFER IV/PAIN MEDS, GIVEN PER PATIENT REQUEST, NON PHARMACOLOGIC INTERVENTION RENDERED.
--- NOTE | 2021-10-08 20:15 | NUR ---
RN NOTES: SHE VERBALIZED SHE DONT WANT ANY TRAMADOL P.O., SHE EXPLAINED HER REASON BECAUSE SHE WILL DO BREAST FEEDING,SHE DONT WANT TO TAKE IT FOR 2330 DOSE.SHE REFUSED TRAMADOL ORAL.
--- NOTE | 2021-10-08 23:18 | NUR ---
RN NOTES: CALLS AND NEEDS ATTENDED, KEPT CALL LIGHT WITHIN EASY REACH.
[2021-10-09] VITALS: BP 116/67
--- NOTE | 2021-10-09 00:07 | NUR ---
RN NOTES: --AT 2330 -OFFERED HER ROUTINE ULTRAM, PATIENT STRONGLY REFUSED, DESPITE EXPLANATION OF RISK AND BENEFITS HER DECISION IS MADE, SHE DONT WANT TO TAKE T BECAUSE SHE WILL DO BREAST FEED.
[2021-10-09] MEDS: CALCIUM CARBONATE 500 MG TAB.CHEW PO PRN (01:41)
[2021-10-09] MEDS: HYDROMORPHONE 1 MG/1 ML DISP.SYRIN IV PRN ×4 (01:41→23:04)
--- NOTE | 2021-10-09 01:42 | NUR ---
RN NOTES: AWAKE SHE SAID SHE IS IN TERRIBLE PAIN, ASKING FOR HER PAIN MEDICATION AND SOMETHING FOR HEARTBURN, ASKED TO DESCRIBE HER PAIN ITS MORE ON THE STOMACH AREA, NOT RADIATING TO LEFT SHOULDER OR ANY OTHER PART.LOCALIZED IN ONE AREA ONLY, GIVEN PAIN MEDICATION.
[2021-10-09 04:00] VITALS: BP 113/70
--- NOTE | 2021-10-09 06:30 | NUR ---
RN NOTES: MORNING CARE DONE, SHE HAD BM, SOFT IN CONSISTENCY, SMALL AMOUNT, ASLEEP MOST OF THE TIME, STILL WITH ON AND OFF PAIN, ATE LITTLE SNACK AND GO BACK TO SLEEP, FOR CXR AND LABS THIS MORNING. -ENDORSED FOR CONTINUITY OF CARE.
[2021-10-09 06:57] LABS: BASOPHILS % (AUTO) 0.4 % (0.0-2.0); EOSINOPHILS % (AUTO) 3.2 % (0.0-6.0); HEMATOCRIT 30 % (33-45); HEMOGLOBIN 9.9 g/dL (11.5-14.8); LYMPHOCYTES # (AUTO) 1.7 K/uL (0.8-4.8); LYMPHOCYTES % (AUTO) 18.8 % (20.0-44.0); MEAN CORPUSCULAR HGB CONC 33 g/dl (31.0-36.0); MEAN CORPUSCULAR VOLUME 91 fL (82-100); MONOCYTES # (AUTO) 0.6 K/uL (0.1-1.30); MONOCYTES % (AUTO) 6.8 % (2.0-12.0); NEUTROPHILS # (AUTO) 6.4 K/uL (1.8-8.9); NEUTROPHILS % (AUTO) 70.8 % (43.0-81.0); PLATELET COUNT (AUTO) 405 K/uL (150-450); WHITE BLOOD COUNT (AUTO) 9.1 K/uL (4.3-11.0)
[2021-10-09 07:13] LABS: CALCIUM, SERUM 8.2 mg/dL (8.5-10.1); CREATININE 0.6 mg/dL (0.6-1.3)
--- NOTE | 2021-10-09 07:39 | NUR ---
RN NOTE PATIENT RECEIVED IN BED, RESTING. PATIENT ON 4L O2 NC WITH NO SIGNS OF LABORED BREATHING AT THIS TIME. LEFT FA 22G SL IN PLACE, LEFT CHEST TUBE IN PLACE ON SUCTION, 10CC OUTPUT OVERNIGHT. BED LOCKED AND IN LOWEST POSITION, CALL LIGHT WITHIN REACH, 2 SIDE RAILS UP. WILL CONTINUE TO MONITOR.
[2021-10-09 08:00] VITALS: BP 106/70
[2021-10-09] MEDS: CHOLECALCIFEROL (VITAMIN D 3) 400 UNIT TABLET PO SCH (08:07)
[2021-10-09] MEDS: PANTOPRAZOLE 40 MG TABLET.DR PO SCH (08:07)
[2021-10-09] MEDS: ZINC SULFATE 220 MG CAPSULE PO SCH (08:07)
[2021-10-09] MEDS: ASCORBIC ACID 500 MG TABLET PO SCH (08:07)
[2021-10-09] MEDS: APIXABAN 5 MG TABLET PO SCH ×2 (08:08→16:02)
[2021-10-09] MEDS: LORAZEPAM 1 MG TABLET PO PRN (10:33)
[2021-10-09] MEDS: TRAMADOL HCL 50 MG TABLET PO SCH ×2 (11:05→22:58)
[2021-10-09 12:00] VITALS: BP 114/69
[2021-10-09 16:00] VITALS: BP 105/59
--- NOTE | 2021-10-09 18:47 | NUR ---
RN CLOSING NOTE PATIENT REMAINS IN BED, AWAKE, A&OX4. PATIENT ON 4L O2 NC WITH NO SIGNS OF LABORED BREATHING AT THIS TIME. LEFT FA 22G SL IN PLACE, LEFT CHEST TUBE IN PLACE ON SUCTION, 50CC THROUGHOUT SHIFT. ALL NEEDS ATTENDED DURING SHIFT. BED LOCKED AND IN LOWEST POSITION, CALL LIGHT WITHIN REACH, 2 SIDE RAILS UP. WILL ENDORSE TO ELECTRICIAN YARD NURSE.
--- NOTE | 2021-10-09 19:45 | NUR ---
RN OPENING NOTE PT IS SITTING UP IN BED. PT ON 4L NC SAT 998% TOLERATING WELL WITH NO LABORED BREATHING OR DISTRESS. PT A/OX4 WITH BRP AND ON TELE MONITOR SR. PT ALSO HAS L CHEST TUBE TO SUCTION, IV ACCESS L FA 22G. PT ON REGULAR DIET.ALL ISOLATION PRECAUTIONS TAKEN. BED IS LOCKED IN LOWEST POSITION X2 GUARD RAILS UP, CALL MASON WITHIN REACH.WILL CONTINUE TO MONITOR.
[2021-10-09 20:00] VITALS: BP 113/63
--- NOTE | 2021-10-09 22:58 | NUR ---
RN NOTE PATIENT REFUSED TRAMODOL AND SAID THAT IT DOES NOT HELP HER WITH HER PAIN AND THAT SHE WOULD LIKE TO GET DILAUDID INSTEAD BECAUSE SHE IS IN TOO MUCH PAIN.
[2021-10-10] VITALS: BP 113/63
[2021-10-10 04:00] VITALS: BP 103/69
[2021-10-10] MEDS: HYDROMORPHONE 1 MG/1 ML DISP.SYRIN IV PRN ×4 (05:28→20:04)
[2021-10-10 07:11] LABS: BASOPHILS # (AUTO) 0.1 K/uL (0.0-0.2); BASOPHILS % (AUTO) 0.8 % (0.0-2.0); EOSINOPHILS % (AUTO) 10.6 % (0.0-6.0); HEMATOCRIT 33 % (33-45); LYMPHOCYTES # (AUTO) 1.7 K/uL (0.8-4.8); MEAN CORPUSCULAR HGB CONC 33 g/dl (31.0-36.0); MEAN CORPUSCULAR VOLUME 91 fL (82-100); MONOCYTES # (AUTO) 0.7 K/uL (0.1-1.30); MONOCYTES % (AUTO) 7.3 % (2.0-12.0); NEUTROPHILS # (AUTO) 5.7 K/uL (1.8-8.9); NEUTROPHILS % (AUTO) 62.3 % (43.0-81.0); PLATELET COUNT (AUTO) 460 K/uL (150-450); RED BLOOD CELL COUNT(AUTO) 3.65 MIL/uL (4.0-5.2); WHITE BLOOD COUNT (AUTO) 9.1 K/uL (4.3-11.0)
[2021-10-10 07:29] LABS: CREATININE 0.7 mg/dL (0.6-1.3); POTASSIUM 3.6 mmol/L (3.5-5.1)
--- NOTE | 2021-10-10 07:35 | NUR ---
RN CLOSING NOTE ALL PATIENT NEEDS MET THROUGHOUT THE NIGHT. PATIENT REMAINS IN BED NOW RESTING. WILL ENDORSE PLAN OF CARE TO AM NURSE.
--- NOTE | 2021-10-10 07:45 | NUR ---
RN OPENING NOTE PT IN BED, ON 4L NC SAT 98% TOLERATING WELL WITH NO LABORED BREATHING OR DISTRESS. NO SOB, BREATHING SYMMETRICAL, NO SIGNS OF CHEST DISCOMFORT. PT A/OX4 WITH BRP AND ON TELE MONITOR SR. PT ALSO HAS L CHEST TUBE TO SUCTION, IV ACCESS L FA 22G. PT ON REGULAR DIET. ALL ISOLATION PRECAUTIONS TAKEN. BED IS LOCKED IN LOWEST POSITION X2 GUARD RAILS UP, CALL MASON WITHIN REACH. WILL CONTINUE TO MONITOR.
[2021-10-10 08:00] VITALS: BP 119/72
[2021-10-10] MEDS: PANTOPRAZOLE 40 MG TABLET.DR PO SCH (08:28)
[2021-10-10] MEDS: CHOLECALCIFEROL (VITAMIN D 3) 400 UNIT TABLET PO SCH (08:28)
[2021-10-10] MEDS: ASCORBIC ACID 500 MG TABLET PO SCH (08:28)
[2021-10-10] MEDS: ZINC SULFATE 220 MG CAPSULE PO SCH (08:28)
[2021-10-10] MEDS: APIXABAN 5 MG TABLET PO SCH ×2 (08:31→17:20)
[2021-10-10] MEDS: TRAMADOL HCL 50 MG TABLET PO SCH ×3 (11:30→23:47)
--- NOTE | 2021-10-10 11:41 | NUR ---
RN NOTE PATIENT IS ON ROOM AIR, SATING BETWEEN 84-85%. O2 SUPPLEMENTATION IN HOSPITAL AND HOME RECOMMENDED.
[2021-10-10 12:00] VITALS: BP 103/58
[2021-10-10 16:00] VITALS: BP 165/98
--- NOTE | 2021-10-10 18:25 | NUR ---
RN CLOSING NOTE PATIENT REMAINS IN BED, AWAKE, A&OX4. PATIENT ON 4L O2 NC SATING AT 97% WITH NO SIGNS OF LABORED BREATHING AT THIS TIME. LEFT FA 22G SL IN PLACE, LEFT CHEST TUBE IN PLACE ON SUCTION, THROUGHOUT SHIFT. ALL NEEDS ATTENDED DURING SHIFT. BED LOCKED AND IN LOWEST POSITION, CALL LIGHT WITHIN REACH, 2 SIDE RAILS UP. WILL ENDORSE TO FACS TEACHER NURSE.
--- NOTE | 2021-10-10 19:30 | NUR ---
PATIENT IN BED, AWAKE, A&OX4, NO SOB/ACUTE DISTRESS NOTED AT THIS TIME, ON PATIENT ON 4L O2 NC WITH O2 SAT LEVEL WNL, ST IN TELE MONITOR WITH HR LOW 100S, LEFT FA 22G SL IN PLACE, PATENT AND INTACT, LEFT CHEST TUBE IN PLACE ON SUCTION, BED LOCKED AND IN LOWEST POSITION, CALL LIGHT WITHIN REACH, 2 SIDE RAILS UP, WITH CONTINUE TO MONITOR CLOSELY.
[2021-10-10 20:00] VITALS: BP 100/64
[2021-10-11] VITALS: BP_SYST 100; BP_SYST 108; BP_SYST 134; BP_DIAS 64; BP_DIAS 67
[2021-10-11] MEDS: HYDROMORPHONE 1 MG/1 ML DISP.SYRIN IV PRN ×5 (00:57→20:06)
[2021-10-11 04:00] VITALS: BP 114/58
--- NOTE | 2021-10-11 06:54 | NUR ---
RN NOTES, NO SIGNIFICANT CHANGE IN CONDITION DURING THE NIGHT, PATIENT WITH STABLE VS, CONT ON 4LPM VIA NC WITH O2 >96%, CHEST TUBE IN PLACED, WILL HAVE SPECIAL CHEST X-RAYS THIS MORNING, WHICH REQUIRE CLAMP THE CHEST TUBE FOR 30 MIN, ON PAIN MANAGEMENT, WILL ENDORSE CONTINUITY TO ONCOMING NURSE, OTHERWISE NO SOB/DISTRESS NOTED.
[2021-10-11 07:01] LABS: BASOPHILS # (AUTO) 0.1 K/uL (0.0-0.2); BASOPHILS % (AUTO) 0.6 % (0.0-2.0); EOSINOPHILS % (AUTO) 9.9 % (0.0-6.0); HEMATOCRIT 32 % (33-45); HEMOGLOBIN 10.6 g/dL (11.5-14.8); LYMPHOCYTES # (AUTO) 1.6 K/uL (0.8-4.8); LYMPHOCYTES % (AUTO) 17.7 % (20.0-44.0); MEAN CORPUSCULAR HGB CONC 33 g/dl (31.0-36.0); MEAN CORPUSCULAR VOLUME 91 fL (82-100); MONOCYTES # (AUTO) 0.6 K/uL (0.1-1.30); MONOCYTES % (AUTO) 6.8 % (2.0-12.0); NEUTROPHILS # (AUTO) 5.8 K/uL (1.8-8.9); PLATELET COUNT (AUTO) 437 K/uL (150-450); RED BLOOD CELL COUNT(AUTO) 3.52 MIL/uL (4.0-5.2)
[2021-10-11 07:11] LABS: CALCIUM, SERUM 8.2 mg/dL (8.5-10.1); CREATININE 0.7 mg/dL (0.6-1.3); POTASSIUM 3.7 mmol/L (3.5-5.1)
[2021-10-11] MEDS: HYDROCODONE/APAP 5/325MG TABLET PO PRN (07:42)
[2021-10-11 08:00] VITALS: BP 121/67
--- NOTE | 2021-10-11 08:32 | NUR ---
please call Radiology at [phone]. Special instructions are noted on the chest xray.
[2021-10-11] MEDS: CHOLECALCIFEROL (VITAMIN D 3) 400 UNIT TABLET PO SCH (09:03)
[2021-10-11] MEDS: PANTOPRAZOLE 40 MG TABLET.DR PO SCH (09:03)
[2021-10-11] MEDS: ZINC SULFATE 220 MG CAPSULE PO SCH (09:03)
[2021-10-11] MEDS: ASCORBIC ACID 500 MG TABLET PO SCH (09:03)
[2021-10-11] MEDS: APIXABAN 5 MG TABLET PO SCH ×2 (09:04→16:09)
--- NOTE | 2021-10-11 09:23 | NUR ---
RN OPENING NOTE PT IN BED, ON 4L NC SAT 98% TOLERATING WELL WITH NO LABORED BREATHING OR DISTRESS. NO SOB, NO SIGNS OF CHEST DISCOMFORT. PT A/OX4 WITH BRP AND ON TELE MONITOR SR. PT ALSO HAS L CHEST TUBE TO SUCTION, IV ACCESS L FA 22G. PT ON REGULAR DIET. ALL ISOLATION PRECAUTIONS TAKEN. BED IS LOCKED IN LOWEST POSITION X2 GUARD RAILS UP, CALL MASON WITHIN REACH. WILL CONTINUE TO MONITOR.
[2021-10-11] MEDS: TRAMADOL HCL 50 MG TABLET PO SCH ×2 (11:39→23:45)
[2021-10-11 12:00] VITALS: BP 114/74
[2021-10-11 12:24] LABS: IRON, SERUM 15 ug/dl (50-175); TOTAL IRON BINDING CAPACITY 224 ug/dl (250-450)
[2021-10-11 16:00] VITALS: BP 114/73
--- NOTE | 2021-10-11 18:53 | NUR ---
SAILMAKER CLOSING NOTE PATIENT REMAINS IN BED, AWAKE, A&OX4. PATIENT ON 4L O2 NC SATING AT 97% WITH NO SIGNS OF LABORED BREATHING AT THIS TIME. LEFT FA 22G SL IN PLACE, LEFT CHEST TUBE IN PLACE ON SUCTION, THROUGHOUT SHIFT. ALL NEEDS ATTENDED DURING SHIFT. BED LOCKED AND IN LOWEST POSITION, CALL LIGHT WITHIN REACH, 2 SIDE RAILS UP. WILL ENDORSE TO POTATO PEELER NURSE.
[2021-10-11 20:00] VITALS: BP 128/70
[2021-10-12] VITALS (7 sets, daily range): BP systolic 92–134; BP diastolic 61–73
[2021-10-12] MEDS: HYDROMORPHONE 1 MG/1 ML DISP.SYRIN IV PRN ×6 (00:43→22:27)
--- NOTE | 2021-10-12 05:37 | NUR ---
RN NOTES PRN DILAUDID GIVEN FOR PAIN 04/26 TOLERATED WELL. WILL CONTINUE TO MONITOR.
--- NOTE | 2021-10-12 07:30 | NUR ---
PRODUCTION TROUBLESHOOTER OPENING NOTES RECEIVED PATIENT IN BED, AWAKE, A/O X4. PATIENT ON OXYGEN THERAPY AT 4 LPM VIA NASAL CANULA. TELE MONITOR WITH A CURRENT READING OF ST 102. L CHEST TUBE PRESENT AND INTACT. IV ACCESS AT LFA G #20 SL PRESENT AND INTACT. COMPLAINING OF MILD PAIN. SAFETY PRECAUTIONS IN PLACE; BED IN LOW POSITION AND LOCKED, RAILS UP X2, CALL LIGHT WITHIN REACH. WILL CONTINUE TO MONITOR PATIENT.
--- NOTE | 2021-10-12 07:30 | NUR ---
NO CHANGE IN CONDITION DURING THE NIGHT, ENDORSED TO NOE MACIAS FOR CONT OF CARE.
[2021-10-12] MEDS: ZINC SULFATE 220 MG CAPSULE PO SCH (08:09)
[2021-10-12] MEDS: CHOLECALCIFEROL (VITAMIN D 3) 400 UNIT TABLET PO SCH (08:09)
[2021-10-12] MEDS: ASCORBIC ACID 500 MG TABLET PO SCH (08:09)
[2021-10-12] MEDS: PANTOPRAZOLE 40 MG TABLET.DR PO SCH (08:10)
[2021-10-12] MEDS: APIXABAN 5 MG TABLET PO SCH ×2 (08:12→16:58)
[2021-10-12 09:07] LABS: IMMUNOGLOBULIN A, SERUM 248 mg/dL (87-352); IMMUNOGLOBULIN G, SERUM 684 mg/dL (586-1602); IMMUNOGLOBULIN M, SERUM 82 mg/dL (26-217)
--- NOTE | 2021-10-12 09:35 | NUR ---
CARDIAC CATH RN NOTES PATIENT COMPLAINING OF GENERALIZED PAIN 8 OUT OF 10 AND REQUESTING PAIN MEDICATION. PRN DILAUDID ADMINISTERED. WILL REASSESS.
[2021-10-12 11:08] LABS: *SPE A/G RATIO 0.7 (0.7-1.7); *SPE ALPHA-1-GLOBULIN 0.4 g/dL (0.0-0.4); *SPE BETA GLOBULIN 1.1 g/dL (0.7-1.3); *SPE M-SPIKE Not Observed g/dL (Not Observed)
[2021-10-12] MEDS: TRAMADOL HCL 50 MG TABLET PO SCH ×2 (11:36→23:45)
[2021-10-12] MEDS: FERROUS SULFATE (325 MG) 325 MG/TAB TABLET PO SCH ×2 (12:21→16:57)
[2021-10-12] MEDS ORDERED: [UNRECOGNIZED DRUG - OTHER] TP PRN (14:00)
--- NOTE | 2021-10-12 14:10 | NUR ---
DIAMOND CUTTER NOTES PATIENT COMPLAINING OF GENERALIZED PAIN 9 OUT OF 10 AND REQUESTING PAIN MEDICATION. PRN DILAUDID ADMINISTERED. WILL REASSESS.
--- NOTE | 2021-10-12 18:15 | NUR ---
DRAWING SUPERVISOR NOTES PATIENT COMPLAINING OF GENERALIZED PAIN 8 OUT OF 10 AND REQUESTING PAIN MEDICATION. PRN DILAUDID ADMINISTERED. WILL REASSESS.
--- NOTE | 2021-10-12 18:48 | NUR ---
DIRECTOR SUPPLY CHAIN CLOSING NOTES PATIENT REMAINS IN BED, AWAKE, A/O X4. PATIENT ON OXYGEN THERAPY AT 4 LPM VIA NASAL CANULA. TELE MONITOR WITH A CURRENT READING OF ST 110. L CHEST TUBE PRESENT AND INTACT ON LOW CONTINUOUS SUCTION. IV ACCESS AT LFA G #20 SL PRESENT AND INTACT. PAIN TREATED WITH PRN PAIN MEDICATION PER MD ORDER. ALL NEEDS ATTENDED DURING THE DAY. SAFETY PRECAUTIONS IN PLACE; BED IN LOW POSITION AND LOCKED, RAILS UP X2, CALL LIGHT WITHIN REACH. WILL ENDORSE TO CARDIOPULMONARY PHYSICAL THERAPIST NURSE FOR LAURA.
--- NOTE | 2021-10-12 22:14 | NUR ---
RN NOTES: CHANGED CHEST WALL CANISTER BY THE ICU NURSE AND CHARGE NURSE. PT TOLERATED WELL. NO OUTPUT NOTED ON THE NEW TUBE. WILL CONTINUE TO MONITOR
--- NOTE | 2021-10-12 22:36 | NUR ---
RN NOTES: C/O SEVERE PAIN 9/10 PAIN SCALE ON LEFT CHEST WALL AREA AND PT TOLERATED WELL. WILL CONTINUE TO MONITOR
[2021-10-13] VITALS: BP 107/64
--- NOTE | 2021-10-13 00:26 | NUR ---
RN NOTES: PT'S IV SITE WAS LEAKING. INSERTED NEW IV SITE ON ON LAC#22G INTACT AND PATENT. NO S/S OF INFILTRATIONS. WILL CONTINUE TO MONITOR
[2021-10-13] MEDS: HYDROMORPHONE 1 MG/1 ML DISP.SYRIN IV PRN ×6 (02:31→23:30)
--- NOTE | 2021-10-13 02:33 | NUR ---
RN NOTES: PT C/O GENERALIZED BODY PAIN 9/10 PAIN SCALE. DILAUDID GIVEN PER PRN ORDER. PT TOLERATED WELL. WILL CONTINUE TO MONITOR
[2021-10-13 04:00] VITALS: BP 100/60
--- NOTE | 2021-10-13 06:48 | NUR ---
RN CLOSING NOTES PATIENT IN BED, AWAKE, A/O X4 and verbally RESPONSIVE. ON O2 AT 4 L VIA NASAL CANULA, O2 SAT 100%. ASSISTANT ADMINISTRATOR SHOWS SINUS RHYTHM 92. L CHEST TUBE INTACT ON LOW CONTINUOUS SUCTION, 25CC OUTPUT. IV ACCESS AT SASHA #22 G INTACT AND PATENT. NO S/S OF INFILTRATIONS. DILAUDID GIVEN PRN ORDER. AND TOLERATED WELL. NO ACUTE DISTRESS NOTED. ABLE TO USE THE COMMODE BY HERSELF. ALL SAFETY PRECAUTIONS IN PLACE. BED IN LOW POSITION AND LOCKED, RAILS UP X2, PLACE CALL LIGHT WITHIN REACH. WILL ENDORSE TO MORNING SHIFT NURSE.
--- NOTE | 2021-10-13 07:54 | NUR ---
BENDING SHED WORKER OPENING NOTES RECEIVED PATIENT IN BED, AWAKE, A/O X4. PATIENT ON OXYGEN THERAPY AT 4 LPM VIA NASAL CANULA. L CHEST TUBE PRESENT AND INTACT CONNECTED TO SUCTION. IV ACCESS AT LFA G #20 SL PRESENT AND INTACT. NO CURRENT COMPLAINTS OF PAIN OR SHORTNESS OF BREATH. SAFETY PRECAUTIONS IN PLACE; BED IN LOW POSITION AND LOCKED, RAILS UP X2, CALL LIGHT WITHIN REACH.
[2021-10-13 08:00] VITALS: BP 95/55
[2021-10-13] MEDS: ASCORBIC ACID 500 MG TABLET PO SCH (08:21)
[2021-10-13] MEDS: FERROUS SULFATE (325 MG) 325 MG/TAB TABLET PO SCH ×2 (08:21→16:10)
[2021-10-13] MEDS: ZINC SULFATE 220 MG CAPSULE PO SCH (08:21)
[2021-10-13] MEDS: PANTOPRAZOLE 40 MG TABLET.DR PO SCH (08:21)
[2021-10-13] MEDS: CHOLECALCIFEROL (VITAMIN D 3) 400 UNIT TABLET PO SCH (08:22)
[2021-10-13] MEDS: APIXABAN 5 MG TABLET PO SCH ×2 (08:23→16:10)
--- NOTE | 2021-10-13 11:25 | NUR ---
RN NOTE PER DOCTOR QARNI PATIENT IS TO HAVE CHEST TUBE CLAMPED FOR 30 MINUTES FOLLOWED UP WITH A CHEST XRAY. REPEAT CHEST X RAY TOMORROW IN THE AM
--- NOTE | 2021-10-13 11:30 | NUR ---
RN NOTE PATIENTS CHEST TUBE CLAMPED AT 1130, CHEST X RAY ORDERED FOR 1200. ORDER PLACED FOR REPEAT CHEST X RAY TOMORROW IN THE AM.
[2021-10-13 12:00] VITALS: BP 105/68
[2021-10-13] MEDS: TRAMADOL HCL 50 MG TABLET PO SCH ×2 (12:31→22:34)
--- NOTE | 2021-10-13 14:10 | NUR ---
RN NOTE PATIENTS BLOOD PRESSURE NOTED TO BE 172/[address] HERNANDEZ
--- NOTE | 2021-10-13 15:14 | NUR ---
RN NOTE DOCTOR QARNI NOTIFIED REGARDING PATIENT CHEST XRAY, PER DOCTOR CLAMP CHEST TUBE UNTIL 1600 AND REPEAT CHEST XRAY. PATIENTS CHEST TUBE HAS BEEN CLAMPED.
[2021-10-13 16:00] VITALS: BP 100/66
--- NOTE | 2021-10-13 18:10 | NUR ---
RN NOTE INFORMED DR ELIZABETH PATIENTS X RAY RESULTS HAVE BEEN RECEIVED. PER DR FLORES PATIENT CHEST TUBE WILL BE REMOVED TOMORROW MORNING.
--- NOTE | 2021-10-13 19:13 | NUR ---
KENNEL TECHNICIAN CLOSING NOTES PATIENT IN BED, AWAKE, A/O X4. PATIENT ON OXYGEN THERAPY AT 4 LPM VIA NASAL CANULA. L CHEST TUBE PRESENT AND INTACT CONNECTED TO SUCTION. IV ACCESS AT LFA G #20 SL PRESENT AND INTACT. NO CURRENT COMPLAINTS OF PAIN OR SHORTNESS OF BREATH. SAFETY PRECAUTIONS IN PLACE; BED IN LOW POSITION AND LOCKED, RAILS UP X2, CALL LIGHT WITHIN REACH. WILL INDORSE TO NIGHT NURSE FOR LAURA.
--- NOTE | 2021-10-13 19:40 | NUR ---
RN NOTES PT AWAKE IN BED, ALERT, ABLE TO VERBALIZE ALL NEEDS. RESPIRATIONS EVEN/UNLABORED. ON O2 @4LPM VIA NC. IV SITE: L-AC #22G INTACT/PATENT/FLUSHES WELL. WITH CHEST TUBE IN PLACE AND FUNCTIONING WELL. PT USES BEDSIDE COMMODE. TRANSFER ASSIST PROVIDED NEEDED. PT IN NO ACUTE DISTRESS. SAFETY MEASURES IN PLACE. WILL CONT TO MONITOR.
[2021-10-13 20:00] VITALS: BP 102/55
[2021-10-14] VITALS: BP 125/65
[2021-10-14] MEDS: HYDROMORPHONE 1 MG/1 ML DISP.SYRIN IV PRN ×3 (03:14→11:29)
[2021-10-14 04:00] VITALS: BP 110/69
[2021-10-14 07:08] LABS: BASOPHILS % (AUTO) 0.6 % (0.0-2.0); EOSINOPHILS % (AUTO) 9.4 % (0.0-6.0); HEMATOCRIT 26 % (33-45); HEMOGLOBIN 8.7 g/dL (11.5-14.8); LYMPHOCYTES # (AUTO) 1.5 K/uL (0.8-4.8); LYMPHOCYTES % (AUTO) 21.4 % (20.0-44.0); MEAN CORPUSCULAR HGB CONC 33 g/dl (31.0-36.0); MEAN CORPUSCULAR VOLUME 89 fL (82-100); MONOCYTES # (AUTO) 0.7 K/uL (0.1-1.30); MONOCYTES % (AUTO) 9.6 % (2.0-12.0); NEUTROPHILS # (AUTO) 4.2 K/uL (1.8-8.9); PLATELET COUNT (AUTO) 405 K/uL (150-450); RED BLOOD CELL COUNT(AUTO) 2.95 MIL/uL (4.0-5.2); WHITE BLOOD COUNT (AUTO) 7.1 K/uL (4.3-11.0)
[2021-10-14] MEDS: PANTOPRAZOLE 40 MG TABLET.DR PO SCH (07:20)
--- NOTE | 2021-10-14 07:44 | NUR ---
MARINE ELECTRICIAN HELPER OPENING NOTES RECEIVED PATIENT IN BED, AWAKE, A/O X4. PATIENT ON OXYGEN THERAPY AT 4 LPM VIA NASAL CANULA. L CHEST TUBE STILL PRESENT AND INTACT CONNECTED TO SUCTION. IV ACCESS AT LFA G #20 SL PRESENT AND INTACT. NO CURRENT COMPLAINTS OF PAIN OR SHORTNESS OF BREATH AT THIS TIME. SAFETY PRECAUTIONS IN PLACE; BED IN LOW POSITION AND LOCKED, RAILS UP X2, CALL LIGHT WITHIN REACH.
[2021-10-14 09:13] VITALS: BP 137/75
[2021-10-14] MEDS: ZINC SULFATE 220 MG CAPSULE PO SCH (10:15)
[2021-10-14] MEDS: FERROUS SULFATE (325 MG) 325 MG/TAB TABLET PO SCH (10:15)
[2021-10-14] MEDS: CHOLECALCIFEROL (VITAMIN D 3) 400 UNIT TABLET PO SCH (10:15)
[2021-10-14] MEDS: ASCORBIC ACID 500 MG TABLET PO SCH (10:15)
[2021-10-14] MEDS: APIXABAN 5 MG TABLET PO SCH (10:19)
--- NOTE | 2021-10-14 10:47 | NUR ---
PER [facility] PCR NEGATIVE.
--- NOTE | 2021-10-14 10:48 | NUR ---
DENZEL VILLAGRAN NOTIFIED.
[2021-10-14] MEDS: TRAMADOL HCL 50 MG TABLET PO SCH (11:28)
[2021-10-14] MEDS ORDERED: IBUP-1957 PO (11:51)
[2021-10-14] MEDS ORDERED: HYDR-3972 PO (11:51)
[2021-10-14] MEDS ORDERED: ALBU8.5H8 INH (11:51)
[2021-10-14] MEDS ORDERED: APIX5TAB PO (11:51)
--- NOTE | 2021-10-14 14:10 | NUR ---
DRILL PUNCH OPERATOR NOTES PATIENT DISCHARGED. REMAINED STABLE AND NO SIGNIFICANT CHANGES IN VITAL SIGNS. ALL BELONGINGS ARE SIGNED AND RELEASED. O2 SUPPLEMENTATION BROUGHT WITH PATIENT.
== END 2021-10-14 13:25 | disposition home or self-care (01) | DRG 137 ==
LOC: ER 00:40 → EDBD 00:40 → TRANSITION 06:57 → MEDSG1 08:33 → TELE1 12:15 → ICU 23:00 → TELE1 09-21 15:54 → TELE-TD 09-21 18:20 → TELE1 09-23 15:23 → TELE-TD 09-28 16:47 → ICU 09-30 12:58 → TELE-TD 10-01 14:03 → TELE1 10-13 17:03
PROVIDERS: ADMIT Nurse Practitioner Acute Care; ATTEND Nurse Practitioner Acute Care
PROC: XW033E5 Introduction of Remdesivir Anti-infective into Peripheral Vein, Percutaneous Approach, New Technology Group 5 (ICD-10-PCS; 2021-09-17)
PROC: XW033H5 Introduction of Tocilizumab into Peripheral Vein, Percutaneous Approach, New Technology Group 5 (ICD-10-PCS; principal; 2021-09-18)
PROC: 05H633Z Insertion of Infusion Device into Left Subclavian Vein, Percutaneous Approach (ICD-10-PCS; 2021-09-27)
PROC: B547ZZA Ultrasonography of Left Subclavian Vein, Guidance (ICD-10-PCS; 2021-09-27)
PROC: 0W9B30Z Drainage of Left Pleural Cavity with Drainage Device, Percutaneous Approach (ICD-10-PCS; 2021-10-03)
DX: U07.1 COVID-19 (principal); J96.01 Acute respiratory failure with hypoxia; J12.82 Pneumonia due to coronavirus disease 2019; J93.0 Spontaneous tension pneumothorax; D68.69 Other thrombophilia; I82.623 Acute embolism and thrombosis of deep veins of upper extremity, bilateral; E87.1 Hypo-osmolality and hyponatremia; D69.6 Thrombocytopenia, unspecified; J15.9 Unspecified bacterial pneumonia; E86.1 Hypovolemia; E66.01 Morbid (severe) obesity due to excess calories; Z68.38 Body mass index [BMI] 38.0-38.9, adult; B96.20 Unspecified Escherichia coli [E. coli] as the cause of diseases classified elsewhere; D50.9 Iron deficiency anemia, unspecified; E87.6 Hypokalemia; F41.9 Anxiety disorder, unspecified; Z79.01 Long term (current) use of anticoagulants; N39.0 Urinary tract infection, site not specified; F15.11 Other stimulant abuse, in remission; F14.11 Cocaine abuse, in remission; E66.9 Obesity, unspecified; Z71.3 Dietary counseling and surveillance; I82.611 Acute embolism and thrombosis of superficial veins of right upper extremity; R16.1 Splenomegaly, not elsewhere classified; R74.01 Elevation of levels of liver transaminase levels; K82.9 Disease of gallbladder, unspecified
CPT/HCPCS: 36415; 36600; 71045-TC; 71250-TC; 76700-TC; 80048-TC; 80053-TC; 80076-TC; 80202-TC; 81001; 82550-TC; 82728-TC; 82784; 83010; 83540-TC; 83605-TC; 83615-TC; 83735-TC; 83880; 84100-TC; 84155; 84165; 84443-TC; 84484-TC; 84703-TC; 85025-TC; 85378-TC; 85385-TC; 85396; 85610-TC; 85730-TC; 86022; 86140-TC; 86334; 86431-TC; 86480; 86706; 86803; 86850-TC; 87040-TC; 87081-TC; 87086-TC; 87186-TC; 87340; 87806; 93970-TC; 94760-TC; 94762-TC; 94799-TC; 97116-TC; 97530-TC; A4216; A6403; C9113; G0378; J0883; J1100; J1170; J1650; J1956; J2185; J2248; J2405; J2930; J3262; J3370; J3490; J7030; J7050; J7060; Q9967; U0003